=== PATIENT | female | born 1940 | race Caucasian/White ===

== ENCOUNTER 2024-04-10 15:53 | Emergency (ER) | payer MEDICARE, BC, SELFPAY ==
[2024-04-10 15:57] VITALS: BP 114/60
--- NOTE | 2024-04-10 16:34 | ED.GENMED ---
History of Present Illness
General
Chief Complaint: Breathing Problem
Time Seen by Provider: 04/10/24 16:16
Travel History
Have you had any contact with someone who has COVID-19?: No
Do you have any symptoms of coronavirus? Fever > 100 degrees, chills, cough, shortness of breath, sore throat, loss of taste or smell, muscle aches, or headache?: Yes
Symptoms:: cough
History of Present Illness
History of Present Illness:
HPI: The patient presents with right-sided pleuritic chest discomfort that was worse earlier today. Currently has improved. She had some mild vague shortness of breath. She did have some mucus production as well. She has a history of SARAHI and is
known to Dr. Caden Lopez at [facility]. She had been on several antibiotics but cannot tolerate the side effects and currently is not on any treatment for SARAHI. She states that she had a recent CAT scan at [facility] she has a history of
non-Hodgkin's lymphoma. Her symptoms concerned enough to come to the emergency department today but overall she is improved currently
EXAM:
GENERAL: Well appearing in no distress, room air sat 95 to 96%
HEENT: Moist oral mucosa
CARDIOVASCULAR: No murmurs, normal heart rate, regular rhythm, No chest wall tenderness
PULMONARY: No respiratory distress, Rales bilaterally
ABDOMEN: Soft with no peritoneal signs, no tenderness
NEUROLOGIC: Excellent strength all extremities, no coordination deficits
PSYCHIATRIC: Appropriate mental status, normal insight and judgement
EXTREMITIES: Nontender, no edema, moves all extremities equally
SKIN: No rash, no lesions
TIME OF INITIAL ENCOUNTER: 4:30 PM
NUMBER AND COMPLEXITY OF PROBLEMS ADDRESSED AT THE ENCOUNTER
� Chronic conditions affecting care: SARAHI, A-fib, CAD
� Acute Exacerbation and/or Progression of Chronic Illness: This is an acute problem
� Differential Diagnosis includes: Worsening SARAHI, pneumonia, PE, doubt ACS given the associated productive cough
AMOUNT AND/OR COMPLEXITY OF DATA TO BE REVIEWED AND ANALYZED
� I performed an independent evaluation of and my interpretation is:
EKG: Sinus 86, axis deviation, minimal ST elevation in V1 V2 but not significant changed in comparison to 03/10/2022
CT:
X-rays: Chest x-ray personally viewed I agree with radiologist interpretation that there is similar findings in comparison to 03/09/2022
Laboratory Studies: CBC unremarkable, hemoglobin slightly low at 11.8, age-adjusted D-dimer is reassuring, total bili and AST ALT and alk phos just minimally elevated, BNP not significantly elevated and troponin is unremarkable.
Other:
� Review of other/old records: The daughter gave me the results of the CT of the chest from 03/15/2024 on the patient portal that showed 'intervally increased anterior right upper lobe consolidative opacity suspicious for
pneumonia versus atelectasis, waxing waning of tree-in-bud branching nodularities and pulmonary nodules in both lungs, no change in small airway disease. She was AFB negative recently.
� Clinical information was obtained by an independent historian: I spoke to the daughter at bedside
� Prescriptions/Medications Considered but not given:
� Further testing considered but not performed:
RISK OF COMPLICATIONS AND/OR MORBIDITY OR MORTALITY OF PATIENT MANAGEMENT
� Social determinants of health affecting care: Lives at home
� Discussion with other providers: See below
� Escalation of care including admission/observation vs risk of discharge considered: I discussed case with Dr. Lopez over the phone. No clear indication for antibiotics, steroids, admission. Most of her symptoms have resolved.
Minimal LFT elevation however the patient primarily had chest pain into the back and may be some left-sided abdominal discomfort. She has no right upper quadrant tenderness on exam and did not have isolated pain to the right side of the abdomen.
Past History
Past History
ED Past Medical History: Arrthythmia
ED Past Surgical History: Cardiac, Gynecological and Orthopedic
Social History
Tobacco: Non-smoker
Personal:
Living: with family
Employment: Retired
Family History
Family History: Negative Early CAD
Phy Exam
Physical Exam
Physical Exam:
See HPI
Scores
Heart Failure Risk
Heart Failure Risk Score: Not Applicable
Course
Orders/Labs/Results
Orders:
Orders
04/10/24 16:03
ECG [Electrocardiogram (*1)] Urgent
Reason for Study: Shortness of Breath
EKG- Treatment ONCE
04/10/24 16:28
Complete Blood Count/With Diff Urgent
Comprehensive Metabolic Panel Urgent
D-Dimer Urgent
NT-proBNP Urgent
Troponin I Urgent
04/10/24 16:32
Add On- LAB Urgent
Tests Added?: ddimer
04/10/24 16:33
CR Chest - 2 Views Urgent
Comment:
Reason For Exam: R pleuritic pain; h/o SARAHI
Abnormal Lab Results
04/10/24
16:28
RBC 4.07 L 10^6/uL
(4.20-5.40)
Hgb 11.8 L g/dL
(12.0-16.0)
Hct 34.3 L %
(37.0-47.0)
MPV 11.3 H fL
(7.4-10.4)
Absolute Neuts (auto) 7.6 H 10^3/uL
(1.4-6.5)
Absolute Lymphs (auto) 0.9 L 10^3/uL
(1.2-3.4)
Absolute Monos (auto) 1.0 H 10^3/uL
(0.1-0.6)
Neutrophils % 79.3 H %
(42.2-75.2)
Lymphocytes % 9.4 L %
(20.5-51.1)
Monocytes % 10.0 H %
(1.7-9.3)
D-Dimer 0.77 H ug/mlFEU
(0.00-0.50)
Sodium 134 L mmol/L
(135-145)
Total Bilirubin 1.6 H mg/dl
(0.2-1.3)
AST 72 H U/L
(14-36)
ALT 85 H U/L
(0-35)
Alkaline Phosphatase 166 H U/L
(38-126)
04/10/24 16:28
04/10/24 16:28
Vital Signs
Initial and Last Documented VS:
Initial Vital Signs
Temp Pulse Resp BP Pulse Ox
99.1 F 78 16 114/60 96
04/10/24 15:57 04/10/24 15:57 04/10/24 15:57 04/10/24 15:57 04/10/24 15:57
Last Documented Vital Signs
Temp Pulse Resp BP Pulse Ox
99.1 F 78 16 114/60 96
04/10/24 15:57 04/10/24 15:57 04/10/24 15:57 04/10/24 15:57 04/10/24 15:57
*Critical Care Note
Total Time (30-74mins, 75-104mins- exclusive of procedures): Not Applicable
ED Attending Note
-
Portions of this chart may have been created with voice recognition software.� Occasional wrong word or��sound alike� substitutions may have occurred due to the inherent limitations of voice recognition software.
Discharge Plan
Departure
Prescriptions:
No Action
carvedilol 3.125 MG tablet
3.125 mg PO BID
calcium carbonate 600 MG tablet
600 mg PO DAILY
duloxetine 30 MG capsule,delayed release(DR/EC)
30 mg PO HS
cholecalciferol (vitamin D3) 1,000 UNITS tablet
1,000 units PO DAILY
umeclidinium-vilanterol [Anoro Ellipta] 1 EACH blister with device
1 ea IH R DAILY
atorvastatin 40 MG tablet
40 mg PO QPM Qty: 30 11RF
clopidogrel 75 MG tablet
75 mg PO DAILY Qty: 30 11RF
aspirin 81 MG tablet,chewable
81 mg PO DAILY 0RF
rivaroxaban [Xarelto] 15 MG tablet
15 mg PO QPM Qty: 30 11RF
Rx Instructions:
Reduce Xarelto to 15 mg once daily
methylprednisolone [Medrol (Jamie)] 4 MG tablets,dose pack
4 tab PO . DIRECT Qty: 1 0RF
Referrals:
Russ Frederick MD [Family Provider] -
Interventions
Interventions:
*ED COVID-19 Vaccine History Last Done: 04/10/24 15:59
Discharge Date and Time
Print Language: SWEDISH
[2024-04-10 16:40] LABS: % Basophils 0.5 % (0-2); % Eosinophils 0.5 % (0-6); % Immature Granulocytes 0.3 % (0-0.5); % Lymphocytes 9.4 % (20.5-51.1); % Neutrophils 79.3 % (42.2-75.2); Absolute Basophils 0.1 10^3/uL (0-0.2); Absolute Eosinophils 0.1 10^3/uL (0-0.7); Absolute Lymphocytes 0.9 10^3/uL (1.2-3.4); Absolute Neutrophils 7.6 10^3/uL (1.4-6.5); Hematocrit 34.3 % (37.0-47.0); Hemoglobin 11.8 g/dL (12.0-16.0); Mean Corp Hgb Conc. 34.4 g/dL (33.0-37.0); Mean Corpuscular Volume 84.3 fL (81.0-99.0); Mean Platelet Volume 11.3 fL (7.4-10.4); Nucleated Red Blood Cells % 0 %; Platelet Count 181 10^3/uL (130-400); Red Blood Cell Count 4.07 10^6/uL (4.20-5.40); Red Cell Dist. Width 13.6 % (11.5-14.5); White Blood Cell Count 9.6 10^3/uL (4.8-10.8)
[2024-04-10 16:50] LABS: D-Dimer 0.77 ug/mlFEU (0.00-0.50)
[2024-04-10 16:53] LABS: ALT (SGPT) 85 U/L (0-35); AST (SGOT) 72 U/L (14-36); Alkaline Phosphatase 166 U/L (38-126); Blood Urea Nitrogen 9 mg/dl (7-17); Calcium 9.2 mg/dl (8.4-10.2); Carbon Dioxide 27 mmol/L (22-30); Chloride 98 mmol/L (98-107); Glucose 99 mg/dl (70-99); Sodium 134 mmol/L (135-145); Total Bilirubin 1.6 mg/dl (0.2-1.3); Total Protein 7.3 g/dl (6.3-8.2); eGFR > 60.00
[2024-04-10 17:03] LABS: Troponin I < 0.012 ng/ml
[2024-04-10 17:21] LABS: NT-proBNP 625 pg/ml
[2024-04-10 18:12] VITALS: BP 97/64
== END 2024-04-10 18:33 | disposition home or self-care (01) ==
LOC: EMR 15:53
PROVIDERS: EMERGENCY PHYSICIAN Emergency Medicine; FAMILY PHYSICIAN Internal Medicine Geriatric Medicine
DX: R07.89 Other chest pain (principal)
CPT/HCPCS: 99285; 71046; 80053; 83880; 84484; 85025; 85379; 93005

== ENCOUNTER → 2024-11-09 08:15 | Outpatient (REF) | payer MEDICARE, BC, SELFPAY | LOC: RCS 08:15 | PROVIDERS: ATTENDING PHYSICIAN Internal Medicine Cardiovascular Disease; FAMILY PHYSICIAN Internal Medicine Geriatric Medicine | DX: I35.0 Nonrheumatic aortic (valve) stenosis (principal) | CPT/HCPCS: 93306 ==

== ENCOUNTER → 2024-11-21 08:58 | Outpatient (REF) | payer MEDICARE, BC, SELFPAY | LOC: WDC 08:58 | PROVIDERS: ATTENDING PHYSICIAN Internal Medicine Geriatric Medicine | DX: Z12.31 Encounter for screening mammogram for malignant neoplasm of breast (principal) | CPT/HCPCS: 77063; 77067 ==

== ENCOUNTER → 2025-01-09 07:52 | Outpatient (REF) | payer MEDICARE, BC, SELFPAY ==
[2025-01-09 09:16] LABS: % Basophils 1.4 % (0-2); % Eosinophils 3.8 % (0-6); % Immature Granulocytes 0.2 % (0-0.5); % Lymphocytes 28.9 % (20.5-51.1); % Monocytes 10.8 % (1.7-9.3); % Neutrophils 54.9 % (42.2-75.2); Absolute Basophils 0.1 10^3/uL (0-0.2); Absolute Eosinophils 0.2 10^3/uL (0-0.7); Absolute Lymphocytes 1.2 10^3/uL (1.2-3.4); Absolute Monocytes 0.5 10^3/uL (0.1-0.6); Absolute Neutrophils 2.3 10^3/uL (1.4-6.5); Hematocrit 39.4 % (37.0-47.0); Hemoglobin 12.8 g/dL (12.0-16.0); Mean Corp Hgb Conc. 32.5 g/dL (33.0-37.0); Mean Corpuscular Hgb 28.9 pg (27.0-31.0); Mean Corpuscular Volume 88.9 fL (81.0-99.0); Mean Platelet Volume 11.4 fL (7.4-10.4); Nucleated Red Blood Cells % 0 %; Platelet Count 218 10^3/uL (130-400); Red Blood Cell Count 4.43 10^6/uL (4.20-5.40); Red Cell Dist. Width 14.9 % (11.5-14.5); White Blood Cell Count 4.3 10^3/uL (4.8-10.8)
[2025-01-09 10:03] LABS: ALT (SGPT) 29 U/L (0-35); AST (SGOT) 25 U/L (14-36); Albumin 4.6 g/dl (3.5-5.0); Alkaline Phosphatase 78 U/L (38-126); Blood Urea Nitrogen 20 mg/dl (7-17); Calcium 9.7 mg/dl (8.4-10.2); Carbon Dioxide 29 mmol/L (22-30); Chloride 102 mmol/L (98-107); Glucose 99 mg/dl (70-99); HDL Cholesterol 79 mg/dl; LDL Cholesterol, Calculated 63 mg/dl; Potassium 4.8 mmol/L (3.5-5.1); Sodium 139 mmol/L (135-145); Total Bilirubin 0.9 mg/dl (0.2-1.3); Total Cholesterol 156 mg/dl (50-199); Total Protein 7.5 g/dl (6.3-8.2); Triglyceride 73 mg/dl (10-149); Very Low Density Lipoprotein 14 mg/dl (0-30); eGFR > 60.00
[2025-01-09 10:09] LABS: TSH Reflex To Free T4 5.48 uIU/ml (0.47-4.68)
[2025-01-09 10:38] LABS: Free T4 0.95 ng/dl (0.78-2.19)
== END ==
LOC: REG 07:52
PROVIDERS: ATTENDING PHYSICIAN Internal Medicine Cardiovascular Disease; FAMILY PHYSICIAN Internal Medicine Geriatric Medicine
DX: I35.0 Nonrheumatic aortic (valve) stenosis (principal); I25.10 Atherosclerotic heart disease of native coronary artery without angina pectoris; I48.0 Paroxysmal atrial fibrillation; R00.2 Palpitations
CPT/HCPCS: 36415; 80053; 80061; 84439; 84443; 85025

== ENCOUNTER 2025-03-12 03:07 | Inpatient (IN) | payer MEDICARE, BC, SELFPAY ==
[2025-03-11 16:59] VITALS: BP 109/72
[2025-03-11 17:36] LABS: ALT (SGPT) 107 U/L (0-35); AST (SGOT) 52 U/L (14-36); Albumin 3.7 g/dl (3.5-5.0); Alkaline Phosphatase 433 U/L (38-126); Blood Urea Nitrogen 11 mg/dl (7-17); Calcium 9.3 mg/dl (8.4-10.2); Carbon Dioxide 28 mmol/L (22-30); Chloride 103 mmol/L (98-107); Glucose 112 mg/dl (70-99); Potassium 3.9 mmol/L (3.5-5.1); Sodium 137 mmol/L (135-145); Total Bilirubin 1.3 mg/dl (0.2-1.3); Total Protein 6.9 g/dl (6.3-8.2); eGFR > 60.00
[2025-03-11 17:39] LABS: NT-proBNP 2780 pg/ml; Troponin I 0.015 ng/ml
[2025-03-11 17:41] LABS: % Basophils 0.7 % (0-2); % Eosinophils 0.4 % (0-6); % Immature Granulocytes 0.7 % (0-0.5); % Lymphocytes 9.6 % (20.5-51.1); % Monocytes 10.7 % (1.7-9.3); % Neutrophils 77.9 % (42.2-75.2); Absolute Basophils 0.1 10^3/uL (0-0.2); Absolute Immature Granulocytes 0.1 10^3/uL (0-0.05); Absolute Monocytes 1.1 10^3/uL (0.1-0.6); Absolute Neutrophils 7.9 10^3/uL (1.4-6.5); Hematocrit 33.4 % (37.0-47.0); Hemoglobin 11.2 g/dL (12.0-16.0); Mean Corp Hgb Conc. 33.5 g/dL (33.0-37.0); Mean Corpuscular Hgb 28.1 pg (27.0-31.0); Mean Corpuscular Volume 83.7 fL (81.0-99.0); Mean Platelet Volume 11.5 fL (7.4-10.4); Nucleated Red Blood Cells % 0 %; Platelet Count 259 10^3/uL (130-400); Red Blood Cell Count 3.99 10^6/uL (4.20-5.40); White Blood Cell Count 10.2 10^3/uL (4.8-10.8)
[2025-03-11 22:06] VITALS: BP 124/80
[2025-03-11 22:24] VITALS: BP 105/55
[2025-03-11 22:34] LABS: Troponin I 0.014 ng/ml
[2025-03-11 23:21] VITALS: BMI 24.1
[2025-03-11] MEDS: DUONEB 3 ML INH (23:26)
[2025-03-11 23:39] VITALS: BP 132/97
[2025-03-12] VITALS (62 sets, daily range): BP systolic 74–136; BP diastolic 44–76; BMI 23.4
--- NOTE | 2025-03-12 01:15 | ED.GENMED ---
History of Present Illness
<SHELLEY Crockett Jr. Last Filed: 03/12/25 02:12>
General
Chief Complaint: Cardiac Symptoms
Source: patient, spouse, family and physician
Exam Limitations: none
Time Seen by Provider: 03/11/25 23:07
Nursing documentation reviewed up to this point in time: agreed with
History of Present Illness
History of Present Illness:
84-year-old female with past ministry of A-fib currently on Xarelto, CAD status post cardiac stent currently on Plavix, non-Hodgkin's lymphoma, previous MAC diagnosis presenting to the emergency department today with concerns of productive cough
with green sputum fever shortness of breath worsening over the past few days. Denies specific chest pain. Denies nausea vomiting, no history of COPD or asthma. Has had some seasonal allergic type symptoms over the past week or so.
Past History
<SHELLEY Crockett Jr. Last Filed: 03/12/25 02:12>
Past History
ED Past Medical History: Arrthythmia
ED Past Surgical History: Cardiac, Gynecological and Orthopedic
Social History
Tobacco: Non-smoker
Personal:
Living: with family
Employment: Retired
Family History
Family History: Negative Early CAD
Review of Systems
<SHELLEY Crockett Jr. Last Filed: 03/12/25 02:12>
Review of Systems
Allergies reviewed?: Yes
All Other Systems: ROS reviewed and negative except as documented in HPI and ROS
Phy Exam
<SHELLEY Crockett Jr. Last Filed: 03/12/25 02:12>
Physical Exam
Physical Exam:
GENERAL: Alert , in no apparent distress
EYE: pupils equal and reactive
NECK: Supple, no significant adenopathy.
ENT: o/p clr, mmm.
CARDIAC: Regular rate and rhythm .
LUNGS: Diffuse inspiratory and expiratory wheezing.
ABDOMEN: Soft, without focal tenderness, no r/g, no cvat
NEUROLOGICAL: Alert and oriented, no focal neuro deficits
SKIN: Warm and dry, skin intact.
MUSCULOSKELETAL: No edema, well perfused.
PSYCH: Normal and appropriate interaction.
Course
<Luis Ansari Jr., SHELLEY - Last Filed: 03/12/25 02:12>
Orders/Labs/Results
Orders:
Orders
03/11/25 16:49
ECG [Electrocardiogram (*1)] Urgent
Reason for Study: Chest Pain
EKG- Treatment ONCE
03/11/25 17:11
Complete Blood Count/With Diff Urgent
Comprehensive Metabolic Panel Urgent
Pro-BNP [NT-proBNP] Urgent
Troponin I Urgent
03/11/25 21:34
ECG [Electrocardiogram (*1)] Urgent
Reason for Study: Chest Pain
03/11/25 21:35
EKG- Treatment ONCE
03/11/25 22:02
Troponin I Urgent
03/11/25 23:24
Ipratropium/Albuterol Sulfate [Duoneb] 3 ml INH R NOW ONE
03/11/25 23:25
Ipratropium/Albuterol Sulfate [Duoneb] 3 ml .ROUTE .STK-MED ONE
03/12/25 00:02
CT Chest With Iv Contrast Urgent
Reason For Exam: Cough fever hx of SARAHI
03/12/25 00:57
Acetaminophen [Tylenol] 1,000 mg PO NOW STA
03/12/25 01:10
ECG [Electrocardiogram (*1)] Urgent
Reason for Study: Bradycardia / Tachycardia
Other Reason for Exam: tachycardia
Cardiology Consult: Norma Carlson
EKG- Treatment ONCE
03/12/25 01:59
Azithromycin 500 mg/250 ml [Zithromax Infusion] 500 mg in 250 ml IV NOW
CefTRIAXone [Rocephin] 2,000 mg IV NOW STA
03/12/25 02:00
Dexamethasone Sod Phosphate [Decadron] 10 mg IV Q6H
03/12/25 02:19
ECG [Electrocardiogram (*1)] Urgent
Reason for Study: Palpitations
Cardiology Consult: Norma Carlson
EKG- Treatment ONCE
03/12/25 02:31
Carvedilol [Coreg] 3.125 mg PO NOW STA
03/12/25 02:35
Carvedilol [Coreg] 3.125 mg .ROUTE .STK-MED ONE
03/12/25 02:57
Admit/Transfer Patient As Directed
Co-Sign Provider:
Level of Care: Inpatient admission
Assign to:: Medical/Surgical
Physician / Group: Danny
Diagnosis: Pneumonia
Reason for Hospitalization: Pneumonia
Expected length of stay greater than two midnights?: Yes
ELOS- Estimated Length of Stay in days: 2
I certify the patient meets the requirements for IP care: Yes
03/12/25 02:58
Code Status As Directed
Resuscitation Status: Full Code
PRN Pain Medication Management As Directed
May give lesser potent ordered pain med per pt: Yes
preference::
Protocol:: Medication orders for pain may be administered in a
manner that supports deferring to patient preference
when the pt is:
- Requesting an ordered lesser potent pain medication.
Least to most potent pain medications are defined
as: acetaminophen < NSAID < tramadol < opioids
(morphine, oxycodone, hydromorphone).
- Requesting a lesser dose of the same medication IF
ORDERED.
- Requesting a less intrusive route of administration
if both routes are prescribed by the provider (PO <
IV).
03/12/25 02:59
Digoxin [Lanoxin] 500 mcg IV NOW STA
03/12/25 03:00
Flush (0.9% Sodium Chloride) [Flush (Nss)] See Dose Instructions IV PER PROTOCOL
Abnormal Lab Results
03/11/25
17:11
RBC 3.99 L 10^6/uL
(4.20-5.40)
Hgb 11.2 L g/dL
(12.0-16.0)
Hct 33.4 L %
(37.0-47.0)
MPV 11.5 H fL
(7.4-10.4)
Abs Immat Gran (auto) 0.1 H 10^3/uL
(0-0.05)
Absolute Neuts (auto) 7.9 H 10^3/uL
(1.4-6.5)
Absolute Lymphs (auto) 1.0 L 10^3/uL
(1.2-3.4)
Absolute Monos (auto) 1.1 H 10^3/uL
(0.1-0.6)
Immature Gran % 0.7 H %
(0-0.5)
Neutrophils % 77.9 H %
(42.2-75.2)
Lymphocytes % 9.6 L %
(20.5-51.1)
Monocytes % 10.7 H %
(1.7-9.3)
Glucose 112 H mg/dl
(70-99)
AST 52 H U/L
(14-36)
ALT 107 H U/L
(0-35)
Alkaline Phosphatase 433 H U/L
(38-126)
03/11/25 17:11
03/11/25 17:11
Vital Signs
Initial and Last Documented VS:
Initial Vital Signs
Temp Pulse Resp BP Pulse Ox
100.5 F H 78 18 109/72 95
03/11/25 16:59 03/11/25 16:59 03/11/25 16:59 03/11/25 16:59 03/11/25 16:59
Last Documented Vital Signs
Temp Pulse Resp BP Pulse Ox
101.4 F H 108 28 102/60 98
03/12/25 00:49 03/12/25 02:39 03/12/25 01:20 03/12/25 02:39 03/12/25 01:20
Joannalt;Rodrick Ewing, - Last Filed: 03/12/25 03:06>
Orders/Labs/Results
Orders:
Orders
03/11/25 16:49
ECG [Electrocardiogram (*1)] Urgent
Reason for Study: Chest Pain
EKG- Treatment ONCE
03/11/25 17:11
Complete Blood Count/With Diff Urgent
Comprehensive Metabolic Panel Urgent
Pro-BNP [NT-proBNP] Urgent
Troponin I Urgent
03/11/25 21:34
ECG [Electrocardiogram (*1)] Urgent
Reason for Study: Chest Pain
03/11/25 21:35
EKG- Treatment ONCE
03/11/25 22:02
Troponin I Urgent
03/11/25 23:24
Ipratropium/Albuterol Sulfate [Duoneb] 3 ml INH R NOW ONE
03/11/25 23:25
Ipratropium/Albuterol Sulfate [Duoneb] 3 ml .ROUTE .STK-MED ONE
03/12/25 00:02
CT Chest With Iv Contrast Urgent
Reason For Exam: Cough fever hx of SARAHI
03/12/25 00:57
Acetaminophen [Tylenol] 1,000 mg PO NOW STA
03/12/25 01:10
ECG [Electrocardiogram (*1)] Urgent
Reason for Study: Bradycardia / Tachycardia
Other Reason for Exam: tachycardia
Cardiology Consult: Norma Carlson
EKG- Treatment ONCE
03/12/25 01:59
Azithromycin 500 mg/250 ml [Zithromax Infusion] 500 mg in 250 ml IV NOW
CefTRIAXone [Rocephin] 2,000 mg IV NOW STA
03/12/25 02:00
Dexamethasone Sod Phosphate [Decadron] 10 mg IV Q6H
03/12/25 02:19
ECG [Electrocardiogram (*1)] Urgent
Reason for Study: Palpitations
Cardiology Consult: Norma Carlson
EKG- Treatment ONCE
03/12/25 02:31
Carvedilol [Coreg] 3.125 mg PO NOW STA
03/12/25 02:35
Carvedilol [Coreg] 3.125 mg .ROUTE .STK-MED ONE
03/12/25 02:57
Admit/Transfer Patient As Directed
Co-Sign Provider:
Level of Care: Inpatient admission
Assign to:: Medical/Surgical
Physician / Group: Danny
Diagnosis: Pneumonia
Reason for Hospitalization: Pneumonia
Expected length of stay greater than two midnights?: Yes
ELOS- Estimated Length of Stay in days: 2
I certify the patient meets the requirements for IP care: Yes
03/12/25 02:58
Code Status As Directed
Resuscitation Status: Full Code
PRN Pain Medication Management As Directed
May give lesser potent ordered pain med per pt: Yes
preference::
Protocol:: Medication orders for pain may be administered in a
manner that supports deferring to patient preference
when the pt is:
- Requesting an ordered lesser potent pain medication.
Least to most potent pain medications are defined
as: acetaminophen < NSAID < tramadol < opioids
(morphine, oxycodone, hydromorphone).
- Requesting a lesser dose of the same medication IF
ORDERED.
- Requesting a less intrusive route of administration
if both routes are prescribed by the provider (PO <
IV).
03/12/25 02:59
Digoxin [Lanoxin] 500 mcg IV NOW STA
03/12/25 03:00
Flush (0.9% Sodium Chloride) [Flush (Nss)] See Dose Instructions IV PER PROTOCOL
Abnormal Lab Results
03/11/25
17:11
RBC 3.99 L 10^6/uL
(4.20-5.40)
Hgb 11.2 L g/dL
(12.0-16.0)
Hct 33.4 L %
(37.0-47.0)
MPV 11.5 H fL
(7.4-10.4)
Abs Immat Gran (auto) 0.1 H 10^3/uL
(0-0.05)
Absolute Neuts (auto) 7.9 H 10^3/uL
(1.4-6.5)
Absolute Lymphs (auto) 1.0 L 10^3/uL
(1.2-3.4)
Absolute Monos (auto) 1.1 H 10^3/uL
(0.1-0.6)
Immature Gran % 0.7 H %
(0-0.5)
Neutrophils % 77.9 H %
(42.2-75.2)
Lymphocytes % 9.6 L %
(20.5-51.1)
Monocytes % 10.7 H %
(1.7-9.3)
Glucose 112 H mg/dl
(70-99)
AST 52 H U/L
(14-36)
ALT 107 H U/L
(0-35)
Alkaline Phosphatase 433 H U/L
(38-126)
03/11/25 17:11
03/11/25 17:11
Vital Signs
Initial and Last Documented VS:
Initial Vital Signs
Temp Pulse Resp BP Pulse Ox
100.5 F H 78 18 109/72 95
03/11/25 16:59 03/11/25 16:59 03/11/25 16:59 03/11/25 16:59 03/11/25 16:59
Last Documented Vital Signs
Temp Pulse Resp BP Pulse Ox
101.4 F H 108 28 102/60 98
03/12/25 00:49 03/12/25 02:39 03/12/25 01:20 03/12/25 02:39 03/12/25 01:20
<Luis Ansari Jr., PA-C - Last Filed: 03/12/25 02:12>
MDM/Problems Addressed
MDM/Problems Addressed:
84-year-old female presenting to the emergency department today with concerns of productive cough fever shortness of breath worsening since yesterday. This was preceded by what she believes was seasonal allergies over the past week or so. On
arrival she had a low-grade temperature of 100.5 pulse ox in the mid 90s patient was coughing and did have diffuse wheeze. She was started on DuoNeb. Also given steroids. Additionally CT scan was obtained that showed scattered infiltrates
potentially pneumonia started on antibiotics will be admitted for further monitoring. Pulse ox of about 90 at rest. Had slight improvement after DuoNeb.
<Luis Ansari Jr., PA-C - Last Filed: 03/12/25 02:12>
*Critical Care Note
Total Time (30-74mins, 75-104mins- exclusive of procedures): Not Applicable
ED Attending Note
<Luis Ansari Jr., PA-C - Last Filed: 03/12/25 02:12>
-
Portions of this chart may have been created with voice recognition software.� Occasional wrong word or��sound alike� substitutions may have occurred due to the inherent limitations of voice recognition software.
<Rodrick Ewing, DO - Last Filed: 03/12/25 03:06>
ED Attending Note
Patient seen and examined by attending physician: Yes
I performed the substantive portion of visit, reviewed & personally made and approve the management plan that is documented in note by myself or JAELYN.: Yes
ED Attending Note:
I agree with Ed's note.
Patient presents with fever, cough, shortness of breath over the past couple days.
General: Awake, Alert, Oriented X3. No acute distress.
Vitals: Tachycardic
Head: Atraumatic
Eyes: Pupils equal, EOMI
Throat: Airway intact, no exudates
Neck: Trachea midline
Lungs: Rhonchi bilaterally
Heart: Regular rate, no murmurs
Abd: Soft, Nontender, No pulsatile mass
Neuro: Nonfocal
Skin: Warm, dry, no rash
Extremities: pulses equal b/l, no edema
Patient presents with fever, chills, cough. Patient referred to the emergency room with Dr. Carlson. She informed us that the patient has chronic scarring on chest x-ray making them difficult to interpret. Therefore a CT of the chest was
obtained. This shows multifocal pneumonia. IV antibiotics ordered. Patient developed a tachycardic rhythm which seems to be consistent with an atrial tachycardia perhaps a flutter which is coming and going. With the tachycardia her blood
pressure has become a bit soft. IV fluid bolus ordered. At discussed the situation with Dr. Carlson who is on-call for cardiology and knows the patient well. She recommended a bolus of digoxin 0.5 mg.
Discharge Plan
Departure
Patient Disposition: Admit
Date of Disposition: 03/12/25
Time of Disposition: 02:12
Admit to: Med/Surg
Admit to doctor: Danny
Presentation/result/management discussed w/ accepting MD/DO: Hospitalist
Patient with high blood pressure during this ER visit?: No
Condition: Good
Covid-19: Not Applicable
Discharge Problem:
Multifocal pneumonia
Prescriptions:
No Action
carvedilol 3.125 MG tablet
3.125 mg PO BID
duloxetine 30 MG capsule,delayed release(DR/EC)
30 mg PO HS
umeclidinium-vilanterol [Anoro Ellipta] 1 EACH blister with device
1 ea IH R DAILY
atorvastatin 40 MG tablet
40 mg PO QPM Qty: 30 11RF
clopidogrel 75 MG tablet
75 mg PO DAILY Qty: 30 11RF
Xarelto 20 mg Tablet
20 mg PO DAILY
Referrals:
Russ Freedrick MD [Family Provider] -
Interventions
Interventions:
*Risk Screen - Suicide Last Done: 03/11/25 16:59
*General Assessment Last Done: 03/11/25 16:59
*ED- Fall Risk Assessment Last Done: 03/11/25 23:38
*ED COVID-19 Vaccine History Last Done: 03/11/25 23:38
ED- Pulmonary Assessment Last Done: 03/11/25 23:38
ED- Cardiac Assessment Last Done: 03/11/25 23:38
Discharge Date and Time
Print Language: SWEDISH
[2025-03-12] MEDS: TYLENOL 1000 MG PO (01:22)
[2025-03-12] MEDS: ZITHROMAX INFUSION 250 IV (02:11)
[2025-03-12] MEDS: DECADRON 10 MG IV (02:12)
[2025-03-12] MEDS: ROCEPHIN 2000 MG IV (02:12)
[2025-03-12] MEDS: COREG 3.125 MG PO (02:39)
--- NOTE | 2025-03-12 02:51 | HPS.HSE ---
Family Physician
-
Family Physician: Russ Frederick
Chief Complaint
-
Shortness of breath, productive cough and fever
History of Present Illness
This is an 84-year-old female with past medical history significant for CAD status post PCI, atrial fibrillation on anticoagulation, history of SARAHI without completing full course of treatment, who presents to the emergency department with cough
fevers and shortness of breath.
She reports cough productive with green sputum, fever shortness of breath worsening over the past few days. Denies specific chest pain. Denies nausea vomiting, no history of COPD or asthma. Recent URI/seasonal allergy symptoms. No known sick
contacts and no recent travels.
In the emergency department the patient had a temp of one 1.4, blood pressure was 100/60 with a pulse of 108 and she was satting 98% on room air.
CBC shows a white count of 10, hemoglobin and platelets were normal. Electrolytes BUN/creatinine were normal. Troponin was 0.014 and BNP was 2700. ECG shows a sinus rhythm at a rate of 94.
CT chest shows multiple centrilobular nodules and groundglass opacity throughout all lungs, moderate right pleural effusion, multifocal areas of consolidation likely represent infection.
While in the emergency department patient developed supraventricular tachycardia after a dose of Decadron and albuterol for wheezing. Patient also had a transient drop in her blood pressure and had to be given a bolus of normal saline. Appears to
be multifocal atrial tachycardia. This was sent to cardiology with recommended initiating digoxin.
Medical History
Past Medical History
Past Medical History: Reports Arrhythmia (Proximal atrial fibrillation), CAD (Has CAD status post stenting), Cancer (History of lymphoma status post R-CHOP 2019), COPD and HTN
Additional Past Medical History:
Diagnosis of MAC previously
Past Surgical History: Reports Other
Social History
Tobacco: Non-smoker
Alcohol: None
Family History
Family History: Not pertinent
Allergies / Home Medications
Allergies reflects when Allergies were last updated in [facility].
Home Medications with original date entered in [facility]
Allergy/Medication List:
Allergies
Allergy/AdvReac Type Severity Reaction Status Date / Time
grass pollen Allergy nasal Verified 03/11/25 16:54
symptoms
Home Medications
carvedilol 3.125 mg tablet 3.125 mg PO BID Blood pressure 03/09/22
duloxetine 30 mg capsule,delayed release 30 mg PO HS Mental Health/Anxiety 03/09/22
umeclidinium 62.5 mcg-vilanterol 25 mcg/actuation powdr for inhalation (Anoro Ellipta) 1 ea IH R DAILY Lung/breathing issues 03/09/22
atorvastatin 40 mg tablet 40 mg PO QPM High cholesterol #30 tabs 03/10/22
clopidogrel 75 mg tablet 75 mg PO DAILY Heart disease/condition #30 tabs 03/10/22
rivaroxaban 20 mg tablet (Xarelto) 20 mg PO DAILY 03/12/25
Review of Systems
-
History Source: Patient
Constitutional: Reports Fever
Respiratory: Reports Cough and Trouble Breathing
Cardiac: Reports No Symptoms
Abdomen/GI: Reports No Symptoms
: Reports No Symptoms
Musculoskeletal: Reports No Symptoms
Skin: Reports No Symptoms
Neurological: Reports No Symptoms
Endocrine: Reports No Symptoms
Hematologic/Lymphatic: Reports No Symptoms
Psych: Reports No Symptoms
Physical Exam
Vital Signs
Vital Signs
Temp Pulse Resp BP Pulse Ox
101.4 F H 108 28 102/60 98
03/12/25 00:49 03/12/25 02:39 03/12/25 01:20 03/12/25 02:39 03/12/25 01:20
Physical Exam
General: Well Developed, Well Nourished and Conversant; No Respiratory Distress
HEENT: NormoCephalic, Anicteric, Moist mucous membranes, Atraumatic and PERRLA
Respiratory: Clear
Cardiac: S1/S2, Irregular Rhythm and Tachycardia
Breast: Deferred by me
GI: Soft, Non Tender, Non Distended and Normal Bowel Sounds
Rectal: Deferred by Provider
Genito-urinary: Deferred by me
Musculoskeletal: No Clubbing, No Cyanosis and No Edema
Skin: Warm
Neuro: AO x 3 and Nonfocal/grossly intact
Hematologic/Lymphatic: No Lymphadenopathy
Psych: Calm
Laboratory Results
-
03/11/25 17:11
03/11/25 17:11
Laboratory Results
Total Bilirubin 1.3 mg/dl (0.2-1.3) 03/11/25 17:11
AST 52 U/L (14-36) H 03/11/25 17:11
ALT 107 U/L (0-35) H 03/11/25 17:11
Alkaline Phosphatase 433 U/L (38-126) H 03/11/25 17:11
Troponin I 0.014 ng/ml 03/11/25 22:02
Data Reviewed
-
CT Scan: Report Reviewed by me
Medical Tests (Nuc Med, Echo, EKG etc): Image Personally Visualized and interpreted
Lab Data: Labs Reviewed by me
Old Records: Reviewed
Impression/Plan
-
IMPRESSION:
84 y.o female with h/o MAC, CAD s/p PCI, AFIB on rivaroxaban presenting with cough, fevers, sob. Febrile here and found to have multifocal pneumonia on CT chest.
PLAN:
1. Pneumonia
- admit to IMU med/surg
- check covid/flu
- continue with doxy (qt prolonged on repeat ECG) and ceftriaxone
- legionella and strep pneumo urinary ag
- sputum culture
- blood culture
- supportive measures
2. Supraventricular tachycardia - uncontrolled AFIB, Atrial tachycardia and PVCs after nebs and steroids and transient drop in BP. Unlikely to tolerate high rate agents. Elevated BNP compared to prior. No JVD. No peripheral edema. Trop is
negative.
- ED d/w cardiology, load digoxin
- will continue coreg
- continue rivaroxaban
- echo in am
- correct infectious process. NO indication for steroids.
- cardiology consult
2. CAD - no cp, neg trop
- continue plavix and statin and beta blockade
3. AFIB - rate controlled
- continue coreg
- continue rivaroxaban
DVT PPX - on rivaroxaban
Code status - full code
[2025-03-12] MEDS: LANOXIN 500 MCG IV (03:02)
[2025-03-12 06:10] LABS: Hematocrit 31.8 % (37.0-47.0); Hemoglobin 11.1 g/dL (12.0-16.0); Mean Corp Hgb Conc. 34.9 g/dL (33.0-37.0); Mean Corpuscular Hgb 29.1 pg (27.0-31.0); Mean Corpuscular Volume 83.2 fL (81.0-99.0); Platelet Count 253 10^3/uL (130-400); Red Blood Cell Count 3.82 10^6/uL (4.20-5.40); Red Cell Dist. Width 13.1 % (11.5-14.5); White Blood Cell Count 10.9 10^3/uL (4.8-10.8)
[2025-03-12 06:22] LABS: COVID-19 Antigen Negative (Negative)
[2025-03-12 06:30] LABS: Blood Urea Nitrogen 12 mg/dl (7-17); Calcium 8.6 mg/dl (8.4-10.2); Carbon Dioxide 23 mmol/L (22-30); Chloride 111 mmol/L (98-107); Estimated Creatinine Clearance 55 ml/min; Glucose 154 mg/dl (70-99); Potassium 4.1 mmol/L (3.5-5.1); Sodium 140 mmol/L (135-145); eGFR > 60.00
--- NOTE | 2025-03-12 07:48 | CON.CAR ---
Addendum entered and electronically signed by Tod Steiner MD 03/12/25 11:13:
I saw and examined the patient.
The Hassock Maker's note was reviewed and I agree with the note.
Comment:
GEN: No distress, awake, Ox3
HEENT: supple, anicteric, mmm
LUNGS: scatt rhonchi
CV: Reg, S1/S2, 1/6 syst LSB, no gallop
ABD: soft, BS+, NT/ND
EXT: No edema
NEURO: Gross non-focal
SKIN: No rash
Plan:
84-year-old female with past medical history of moderate aortic stenosis, paroxysmal atrial fibrillation/atrial flutter status post ablation 2012, coronary artery disease status post LAD PCI 2021, SARAHI and lymphoma who presents with cough, fever, and
shortness of breath. Chest x-ray suggest possible pneumonia. She then was having incidents of SVT/atrial tachycardia, and possible a flutter with one-to-one conduction. She was given digoxin x 1 and currently remains in sinus rhythm. She was
also found to have abnormal LFTs.
Continue antibiotics and treatment for pneumonia. Continue doxycycline and ceftriaxone.
She has less SVT and atrial tachycardia at this point. Will start by increasing carvedilol to 6.25 mg p.o. twice daily and follow her rhythm. If she has further episodes of atrial arrhythmias we could consider amiodarone if her liver function
testing improves.
Continue medical therapy for coronary artery disease. Continue the carvedilol, Plavix, Xarelto. Would hold atorvastatin with abnormal LFTs.
We will check repeat echocardiogram. She does have a history of moderate aortic stenosis with progressive symptoms.
Original Note:
Consultation
Consultation Request
Date/Time Consultation Requested: 03/12/25 at 0454
Date/Time Consultation Performed: 03/12/25 at 0732
Requesting Provider: Dr. Sifuentes
Performing Provider: Dr. Steiner
Reason for Consultation: Atach
Medical History
-
History of Present Illness:
Patient was sent from the cardiology office to the ER yesterday with SOB, cough and fever and is now admitted with PNA and cardiology is consulted for paroxysmal Atach. Patient has a h/o paroxysmal typical atrial flutter and had ablation in 2012.
Patient later had paroxysmal Afib and was on Flecainide, but had elevated LFTs and it was stopped. Patient was een by [facility] for a 2nd opinion and opted to manage conservatively with meds and OAC. Patient wore a monitor in 2021 and had Atach up to 39
beats. Patient also diagnosed with lymphoma and initially had Adriamycin and Rituxan and then completed R-CHOP in 02/2020 managed at [facility]. Patient also has SARAHI and saw [facility] 01/17/[address] was stable so she is not chronically on meds due to lack
of symptoms as well and of note previously treated in 2021 and had trouble tolerating therapy. In the office yesterday patient c/o fever and cough and was referred to the ER and was found to have PNA. Fever overnight up to 101.4 degrees Fahrenheit
and patient started on azithromycin and Rocephin. Patient also felt palpitations Tuesday night that felt like previous Afib and then in the ER last night after a breathing treatment she had MAT with resultant hypotension and was given digoxin 500 mcg
IV x1 and is now in SR.
PMH:
Paroxysmal typical atrial flutter s/p ablation 2012
Paroxysmal Afib
previously intolerant to Flecainide
Chronic Xarelto OAC
CAD s/p 3.5 mm Xience prox LAD 03/10/22
SARAHI
Lymphoma
previously received received Adriamycin and Rituxan
completed R-CHOP chemo 02/2020
Past Medical History
Past Medical History: Other (in HPI)
Past Surgical History: Cardiac (atrial flutter ablation 2012) and Orthopedic
Social History
Tobacco: Non-Smoker
Alcohol: Daily (1-2 glasses of wine a day)
Drug: None
Personal:
Living: With Family
Family History
Family History: CAD and Cancer
Allergies / Home Medications
Allergy/AdvReac Type Severity Reaction Status Date / Time
grass pollen Allergy nasal Verified 03/11/25 16:54
symptoms
�Medication �Instructions �Recorded �Confirmed �Type
carvedilol 3.125 mg tablet 3.125 mg PO BID Blood pressure 03/09/22 03/12/25 History
duloxetine 30 mg capsule,delayed 30 mg PO HS Mental Health/Anxiety 03/09/22 03/12/25 History
release
umeclidinium 62.5 mcg-vilanterol 1 ea IH R DAILY Lung/breathing 03/09/22 03/12/25 History
25 mcg/actuation powdr for issues
inhalation (Anoro Ellipta)
atorvastatin 40 mg tablet 40 mg PO QPM High cholesterol #30 03/10/22 03/12/25 Rx
tabs
clopidogrel 75 mg tablet 75 mg PO DAILY Heart 03/10/22 03/12/25 Rx
disease/condition #30 tabs
rivaroxaban 20 mg tablet (Xarelto) 20 mg PO DAILY 03/12/25 03/12/25 History
Review of Systems
-
History Source: Patient
All other systems: Negative unless noted
Physical Exam
Vital Signs
Temp Pulse Resp BP Pulse Ox
98.9 F 76 16 105/63 93
03/12/25 05:00 03/12/25 06:05 03/12/25 06:05 03/12/25 06:05 03/12/25 06:05
GEN: Awakens easily, but then falls back to sleep. NAD. AAOx3
HEENT: EOMI, MMM
LUNGS: RA. CTA B/L, no wheeze
CV: SR on tele. Reg, S1/S2, 2/6 DENNIS
ABD: soft, BS+, NT, ND
EXT: No edema B/L
NEURO: Gross non-focal
SKIN: Warm, dry and pink. No rash
Lab Results
03/12/25 05:53
03/12/25 05:53
Troponin I 0.014 ng/ml 03/11/25 22:02
Vrk-V-Bkghpcgnlre Pept 2780 pg/ml 03/11/25 17:11
Impression / Plan
-
PCP: Dr. Frederick
Cardiology: Dr. Norma Carlson
Impression:
Admitted with CAP and Atach 03/11/25
CAP
Paroxysmal Atach with RVR
Paroxysmal typical atrial flutter s/p ablation 2012
Paroxysmal Afib
previously intolerant to Flecainide
Chronic Xarelto OAC
CAD s/p 3.5 mm Xience prox LAD 03/10/22
SARAHI
Lymphoma
previously received received Adriamycin and Rituxan
completed R-CHOP chemo 02/2020
Elevated LFTs
Echo 01/14/22: EF 55-60%, LV global endocardial peak strain measures -15%, mild mR, mild to mod peak/mean 34/21 mmHg an d RISHI 1.1 cm sq
Echo 11/09/23: EF 59%, mild conc LVH, mild MR, mild aortic regurgitation, mod peak/mean 34/22 mmHg RISHI 1.0 cm sq, mod TR with PAP 29 mmHg
Echo 11/09/24: EF 55-60%, normal wall motion, normal RV size and function, moderate to severe peak/mean 50/23 mmHg and RISHI 0.8 cm sq, mod TR with PAP 41 mmHg,
Plan:
-Patient was sent from the cardiology office to the ER yesterday with SOB, cough and fever and is now admitted with PNA and cardiology is consulted for paroxysmal Atach. Patient has a h/o paroxysmal typical atrial flutter and had ablation in 2012.
Patient later had paroxysmal Afib and was on Flecainide, but had elevated LFTs and it was stopped. Patient was een by [facility] for a 2nd opinion and opted to manage conservatively with meds and OAC. Patient wore a monitor in 2021 and had Atach up to 39
beats. Patient also diagnosed with lymphoma and initially had Adriamycin and Rituxan and then completed R-CHOP in 02/2020 managed at [facility]. Patient also has SARAHI and saw [facility] 01/17/[address] was stable so she is not chronically on meds due to lack
of symptoms as well and of note previously treated in 2021 and had trouble tolerating therapy. In the office yesterday patient c/o fever and cough and was referred to the ER and was found to have PNA. Fever overnight up to 101.4 degrees Fahrenheit
and patient started on azithromycin and Rocephin. Patient also felt palpitations Tuesday night that felt like previous Afib and then in the ER last night after a breathing treatment she had MAT with resultant hypotension and was given digoxin 500 mcg
IV x1 and is now in SR.
-ECGs reviewed by me. Initial ECG in the ER was SR and ECG this morning at 0229 was MAT with HR 161. Tele reviewed by me this morning and patient in SR throughout HPI.
-Patient with MAT overnight that improved with Digoxin 500 mcg IV x1. Will increase Coreg to 6.25 mg BID starting now, orders placed by me.
-Patient was previously intolerant to flecainide due to elevated LFTs and since then was diagnosed with CAD and can no longer be on flecainide for that reason as well. Could consider additional of an alternative AAD. Cre 0.7 and QTc 451 ms in SR on
ECG from 03/12/25 at 0113. LFTs up on admission on labs reviewed by me, AST/ALT 52/107
-Outpatient dose of Xarelto 20 mg daily has been continued
-pro-BNP 2780 which is her highest on record. Will try Lasix 20 mg IV x1 now. Patient is not chronically on a diuretic prior to admission.
-EF was 55-60% with moderate to severe by last echo 11/09/24.
-Coreg as above.
-Patient is not chronically on KENYA/ARB/ARNI/aldosterone antagonist and pending BP response to diuresis could add.
-Patient with moderate to severe peak/mean 50/23 and RISHI 0.8 cm sq by echo 11/09/24.
-No previous work-up for SAVR/TAVR, but now with CHF.
-Patient with known SARAHI and attempted a course of treatment in 2021, but had trouble tolerating therapy and it was stopped. Last CT at [facility] was stable. Will ask Pulm to see
--- NOTE | 2025-03-12 08:09 | W.PN.HOSP.TC ---
Today's Communication/Plan
-
see A/P
Assessment / Plan
Assessment / Plan
84-year-old female with past medical history significant for CAD status post PCI, atrial fibrillation on anticoagulation, history of SARAHI without completing full course of treatment, who presented with cough, fevers and shortness of breath.
Cough productive with green sputum; fever, shortness of breath worsening over the past few days. Recent URI/seasonal allergy symptoms. No known sick contacts and no recent travels.
CT chest shows multiple centrilobular nodules and groundglass opacity throughout all lungs, moderate right pleural effusion, multifocal areas of consolidation likely represent infection.
While in the emergency department patient developed supraventricular tachycardia after a dose of Decadron and albuterol for wheezing. Patient also had a transient drop in her blood pressure and had to be given a bolus of normal saline. Appears to
be multifocal atrial tachycardia. This was sent to cardiology with recommended initiating digoxin.
A/P:
# CAP
COVID/Flu negative
Follow CT formal report
Check MRSA screen
Check Urine Legionella and Strep Ag
Check sputum Cx
Continue doxy and ceftriaxone
supportive measures, Duoneb PRN, Mucinex
# Supraventricular tachycardia
# Paroxysmal atrial fibrillation.
s/p digoxin load per Card
continue home coreg 3.125 BID
continue home rivaroxaban
Check echo
Cardiology consult
# CAD
Continue plavix, Lipitor, coreg
DVT PPX - on rivaroxaban
Code status - full code
Anticipated Discharge: > 48 hours
Subjective/Interval History
-
Date of Service: March 12, 2025
Objective Data
-
Labs:
Laboratory Results
03/12/25
05:53
WBC 10.9 H
Hgb 11.1 L
Hct 31.8 L
Plt Count 253
Sodium 140
Potassium 4.1
Chloride 111 H
Carbon Dioxide 23
BUN 12
Creatinine 0.7
Glucose 154 H
Calcium 8.6
Vital Signs:
Vital Signs
Temp Pulse Resp BP Pulse Ox
37.2 C 76 16 105/63 93
03/12/25 05:00 03/12/25 06:05 03/12/25 06:05 03/12/25 06:05 03/12/25 06:05
Review of Systems
-
History Source: Patient
Respiratory: Reports Cough
Physical Exam
-
General: Well Developed, Well Nourished, No Apparent Distress, Comfortable and Conversant; Negative Respiratory Distress
HEENT: Normocephalic, Atraumatic, Nose Appears Normal and Ears Appear Normal; Negative Oxygen
Respiratory: Clear to Auscultation and Non Labored Respirations; Negative Accessory Resp Muscle Use
Cardiac: Regular Rhythm and S1/S2
GI: Soft, Nontender, Nondistended and Normal Bowel Sounds
Skin: Warm and Dry
Neuro: Awake, Alert, Oriented and AO x 3
Psych: Calm and Intact Judgement/Insight
Data Reviewed
-
Labs: Labs Reviewed by me
--- NOTE | 2025-03-12 08:43 | EDRN ---
pts level of care changed from IMU to Tele by Dr. Sifuentes
--- NOTE | 2025-03-12 08:57 | EDRN ---
cardiology currently at the pts bedside
--- NOTE | 2025-03-12 08:59 | EDRN ---
the pt pressed the call andersen and this RN entered the pts room, the pt stated that she needed to use the bathroom, the pt was able to stand independently at the bedside and use the bedside commode with no issues, HR remained in the 70's
--- NOTE | 2025-03-12 09:12 | CON.PUL ---
Consultation
Consultation Request
Date/Time Consultation Requested: 03/12/2025-9 AM
Date/Time Consultation Performed: 03/12/2025-9:30 AM
Requesting Provider: Cardiology
Performing Provider: Dr. Xie
Reason for Consultation: Shortness of breath
Medical History
-
Chief Complaint: Shortness of breath
History of Present Illness:
83-year-old female with a history of CAD/stent, atrial fibrillation on anticoagulation, lymphoma taking care at [facility] with history of SARAHI without completing a full course of treatment who presented with cough, fevers and shortness of breath
noted to have pneumonia-pulmonary consulted for pneumonia/SARAHI 03/12/2025. She reports being in usual state of health until couple days prior to admission. She did have fevers, chills, and some mild increasing shortness of breath. She currently
denies chest pain, chest tightness, productive cough, but had some dyspnea on exertion. She offers no complaints of abdominal pain, nausea, leg swelling or weakness.
Past Medical History
Past Medical History: None (CAD/stent. PAF/anticoagulation. Lymphoma status post R-CHOP 2019. Hypertension. COPD. SARAHI.)
Social History
Tobacco: Non-smoker
Alcohol: None
Drug: None
Personal:
Living: With Family
Occupational Exposures: no known asbestos exposure
Environmental Exposures: no known tuberculosis exposure
Family History
Family History: Reviewed & Not Pertinent
Allergies / Home Medications
Allergies
Allergy/AdvReac Type Severity Reaction Status Date / Time
grass pollen Allergy nasal Verified 03/11/25 16:54
symptoms
Home Medications
�Medication �Instructions �Recorded �Confirmed �Last Taken �Type
carvedilol 3.125 mg tablet 3.125 mg PO BID Blood pressure 03/09/22 03/12/25 03/09/22 History
duloxetine 30 mg capsule,delayed 30 mg PO HS Mental Health/Anxiety 03/09/22 03/12/25 03/08/22 History
release
umeclidinium 62.5 mcg-vilanterol 1 ea IH R DAILY Lung/breathing 03/09/22 03/12/25 03/09/22 History
25 mcg/actuation powdr for issues
inhalation (Anoro Ellipta)
atorvastatin 40 mg tablet 40 mg PO QPM High cholesterol #30 03/10/22 03/12/25 Unknown Rx
tabs
clopidogrel 75 mg tablet 75 mg PO DAILY Heart 03/10/22 03/12/25 Unknown Rx
disease/condition #30 tabs
rivaroxaban 20 mg tablet (Xarelto) 20 mg PO DAILY 03/12/25 03/12/25 Unknown History
Review of Systems
-
Unable to Obtain full review of systems at this time due to: Other ( per HPI)
Vitals / Labs / Diagnostic Testing
Vital Signs
Temp Pulse Resp BP Pulse Ox
98.5 F 70 18 122/71 96
03/12/25 08:10 03/12/25 08:45 03/12/25 08:45 03/12/25 08:35 03/12/25 08:45
Lab Data
03/12/25 05:53
03/12/25 05:53
Microbiology
03/12/25 05:53 Nasal Swab Influenza Types A & B (YAJAIRA) - Final
Negative for Influenza A & B, NAAT
Negative results must be combined with clinical observations
and patient history.
Nucleic Acid Amplification test (NAAT)performed on the
[employer] platform.
Diagnostic Testing:
Physical Exam
-
Exam:
well-nourished and well-developed in no apparent distress
HEENT-atraumatic, normocephalic
Neck-supple, no JVD, no bruit
Heart-regular rate and rhythm-no murmurs, rubs or gallops
Chest-clear to auscultation, no wheezes, crackles
Back-no tenderness
Abdomen-soft, nontender, nondistended, no hepatosplenomegaly
Extremities-no cyanosis, clubbing, edema and good peripheral pulses
Integument-intact, no rashes, lesions or ecchymosis
Neurology-alert and oriented, nonfocal motor and sensory exam
Assessment
-
83-year-old female with a history of CAD/stent, atrial fibrillation on anticoagulation, lymphoma taking care at [facility] with history of SARAHI without completing a full course of treatment who presented with cough, fevers and shortness of breath
noted to have pneumonia-pulmonary consulted for pneumonia/SARAHI 03/12/2025.
Pneumonia
Uncontrolled atrial fibrillation/atrial tachycardia
Leukocytosis
Mild normocytic anemia-hemoglobin 11.1
Hyperglycemia
Elevated LFTs
Conditions present prior to admission:
CAD/stent.
PAF/anticoagulation.
Lymphoma status post R-CHOP 2019.
Hypertension.
COPD.
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 Lopez at [facility]
Aortic stenosis-moderate to severe
Plan
Suspect respiratory decompensation is multifactorial-chronic SARAHI infection, new probable bacterial community-acquired pneumonia in immunocompromised patient along with uncontrolled atrial fibrillation
Supplemental oxygen as needed
Mucolytic's
Incentive spirometry
Mucus clearing devices
Aspiration precautions
Check cultures
Rocephin and doxycycline continue
Patient was intolerant to multi drug SARAHI therapy in the past
Consider reculturing and trying different regiment including potential amikacin nebulized therapy
Consider infectious disease consultation
Follow leukocytosis Xarelto continues
Monitor hemoglobin
Transfuse as needed
Cardiology following-correspondence reviewed
Atrial fibrillation rate controlled
Follow blood sugar
Insulin supplementation as needed
DVT prophylaxis-on Xarelto
Nutrition
Early mobilization
Reviewed with ED nursing, as well as multiple family members including her at the bedside in the emergency room
Last saw Dr. Perez 11/07/2017- she now follows at [facility] with Dr Lopez
Diagnostic data:
Linear opacifications likely chronic
Chest x-ray 07/22/2018-small right upper lobe acinar linear opacification likely chronic
Chest x-ray 03/09/2022-new airspace disease most pronounced in the right lower lobe consistent with pneumonia and pulmonary findings consistent with changes of COPD
Chest x-ray 04/10/2024-chronic atypical infection such as SARAHI
CT chest 03/12/[id number] review patchy areas of nodular infiltrates and tree-in-bud consistent with known history of SARAHI as well as focal consolidations that could represent superimposed pneumonia
Echocardiogram 11/09/2024-EF 55-60%, trivial mitral regurgitation, aortic stenosis with an valve area 0.8 cm
Data Reviewed
-
EKG: Report reviewed by me
Radiology: Report reviewed by me
CT Scan: Image personally visualized and interpreted and Report reviewed by me
Medical Tests (Nuc Med, Echo etc): Report reviewed by me
Labs: Labs reviewed by me
Old Records: Reviewed
Total Time Spent with Patient (in minutes): 65
[2025-03-12] MEDS: VIBRAMYCIN 100 MG PO ×2 (09:37→19:58)
[2025-03-12] MEDS: MUCINEX 600 MG PO ×2 (09:38→19:58)
[2025-03-12] MEDS: LASIX 20 MG IV (09:38)
[2025-03-12] MEDS: COREG 6.25 MG PO ×2 (10:26→19:58)
[2025-03-12] MEDS: XARELTO 20 MG PO (10:26)
[2025-03-12] MEDS: NON-FORMULARY ITEM INH (10:30)
--- NOTE | 2025-03-12 11:00 | EDRN ---
Madison from physical therapy came to the pts bedside and the pt is refusing PT now and stating that she wants to do it later, Madison from physical therapy stated to this RN that she would be back at a later time
--- NOTE | 2025-03-12 11:10 | EDRN ---
the pts daughter approached this RN at the nurses station and asked this RN if the pt had a fever, this RN notified the pts daughter that the pt was afebrile this AM
--- NOTE | 2025-03-12 11:25 | EDRN ---
the pts daughter approached this RN at the nurses station and asked this RN when the pts Echo will bed done, this RN stated that this RN was not exactly sure however this RN notified the pts daughter that this RN will update the pts daughter when
this RN finds out
--- NOTE | 2025-03-12 11:28 | EDRN ---
pulmonology currently at the pts bedside
--- NOTE | 2025-03-12 12:00 | EDRN ---
physical therapy currently at the pts bedside
[2025-03-12] MEDS: ROBITUSSIN DM 5 ML PO (14:02)
[2025-03-12] MEDS: TYLENOL 650 MG PO (14:02)
--- NOTE | 2025-03-12 14:57 | EDRN ---
this RN entered the pts room to check on the pt and the pt stated that she had right sided chest pain and right shoulder pain, this RN notified Pauly Sotelo DOUBLING MACHINE OPERATOR
--- NOTE | 2025-03-12 14:59 | W.PN.UPDATE ---
Update Note
Progress Note Update
CTSP for chest pain. Patient, daughter and in the room. Patient's daughter reports that patient told her around lunchtime that she was having chest pain and didn't want to forget to tell someone. No resting chest pain. No pain currently. ECG
and Troponin ordered by me. I helped perform ECG in the room and reviewed once complete, patient is in SR and no acute ischemic changes. Troponin pending, Troponin trend 0.015 and then 0.014 on admission. Echo still pending. Patient seen by Pulm and
we reviewed PMH including SARAHI and previous intolerance to treatment due to symptoms of nausea and diarrhea. Cultures pending and ID consult as needed pending results. 32 min critical care time face to face and coordinating care.
--- NOTE | 2025-03-12 15:04 | EDRN ---
EKG being performed troponin drawn and sent
--- NOTE | 2025-03-12 15:14 | EDRN ---
this RN called the receiving IVU nurse Crystal JONES and gave verbal report
--- NOTE | 2025-03-12 15:18 | EDRN ---
Pauly Sotelo MANAGER PAPER currently at the pts bedside
[2025-03-12 15:36] LABS: Troponin I < 0.012 ng/ml
--- NOTE | 2025-03-12 16:59 | PTCARENOTE ---
Received the patient from the ED in a stretcher. The patient is aaox4, vital signs are stable. NSR is noted on the monitor. She ambulated to the bed without difficulty or assist. She stated that she didn't feel SOB while ambulating. Her lungs are
coarse throughout and she has a frequent moist productive cough that is clear in nature. I oriented her to her room, her call andersen is within reach, and her family is at the bedside.
[2025-03-12] MEDS: LIPITOR PO (17:14)
--- NOTE | 2025-03-12 17:16 | PTCARENOTE ---
I held the patient's the Lipitor due to abnormal LFTs per cardiovascular's note.
[2025-03-12] MEDS: CYMBALTA DELAYED RELEASE 30 MG PO (21:11)
--- NOTE | 2025-03-12 22:32 | PTCARENOTE ---
Received patient at change of shift. SR on the monitor, HR in the 70s. Frequent, productive cough with clear sputum. No complaints from pt at this time, call andersen within reach.
[2025-03-12] MEDS: ROCEPHIN 1000 MG IV (23:34)
[2025-03-12] MEDS: STERILE WATER FOR INJECTION 10 ML IV (23:34)
[2025-03-13] VITALS (8 sets, daily range): BP systolic 90–120; BP diastolic 55–81; BMI 23.4
[2025-03-13 05:30] LABS: % Basophils 0.2 % (0-2); % Lymphocytes 5.8 % (20.5-51.1); % Monocytes 5.3 % (1.7-9.3); % Neutrophils 87.7 % (42.2-75.2); Absolute Immature Granulocytes 0.1 10^3/uL (0-0.05); Absolute Lymphocytes 0.8 10^3/uL (1.2-3.4); Absolute Monocytes 0.8 10^3/uL (0.1-0.6); Absolute Neutrophils 12.7 10^3/uL (1.4-6.5); Hematocrit 33.9 % (37.0-47.0); Hemoglobin 11.9 g/dL (12.0-16.0); Mean Corp Hgb Conc. 35.1 g/dL (33.0-37.0); Mean Corpuscular Volume 82.5 fL (81.0-99.0); Mean Platelet Volume 11.2 fL (7.4-10.4); Nucleated Red Blood Cells % 0 %; Platelet Count 325 10^3/uL (130-400); Red Blood Cell Count 4.11 10^6/uL (4.20-5.40); Red Cell Dist. Width 12.9 % (11.5-14.5); White Blood Cell Count 14.5 10^3/uL (4.8-10.8)
[2025-03-13 05:54] LABS: Blood Urea Nitrogen 20 mg/dl (7-17); Calcium 9.3 mg/dl (8.4-10.2); Carbon Dioxide 26 mmol/L (22-30); Chloride 111 mmol/L (98-107); Estimated Creatinine Clearance 64 ml/min; Glucose 151 mg/dl (70-99); Magnesium 2.1 mg/dl (1.6-2.3); Potassium 4.2 mmol/L (3.5-5.1); Sodium 143 mmol/L (135-145); eGFR > 60.00
[2025-03-13] MEDS: NON-FORMULARY ITEM 1 UNIT INH (08:07)
[2025-03-13] MEDS: VIBRAMYCIN 100 MG PO ×2 (09:13→19:26)
[2025-03-13] MEDS: MUCINEX 600 MG PO ×2 (09:16→19:26)
[2025-03-13] MEDS: COREG PO (09:17)
--- NOTE | 2025-03-13 09:21 | W.PN.PUL.V3 ---
Today's Communication / Plan
-
Cultures unrevealing
Wean oxygen
Increase activity
Troponin trended
Echocardiogram pending
Continue antibiotics
Assessment
-
83-year-old female with a history of CAD/stent, atrial fibrillation on anticoagulation, lymphoma taking care at [place] with history of SARAHI without completing a full course of treatment who presented with cough, fevers and shortness of breath
noted to have pneumonia-pulmonary consulted for pneumonia/SARAHI 03/12/2025.
Pneumonia
Uncontrolled atrial fibrillation/atrial tachycardia
Leukocytosis
Mild normocytic anemia-hemoglobin 11.1
Hyperglycemia
Elevated LFTs
Conditions present prior to admission:
CAD/stent.
PAF/anticoagulation.
Lymphoma status post R-CHOP 2019.
Hypertension.
COPD.
SARAHI-treatment course attempted 2021-trouble tolerating therapy and was stopped-[employer], Dr. Lopez at [facility]
Aortic stenosis-moderate to severe
Plan
Suspect respiratory decompensation is multifactorial-chronic SARAHI infection, new probable bacterial community-acquired pneumonia in immunocompromised patient along with uncontrolled atrial fibrillation
Supplemental oxygen as needed-currently on room air
Mucolytic's--on Mucinex
Incentive spirometry
Mucus clearing devices if needed
Cultures
Aspiration precautions
Cultures reviewed
Urine Legionella and streptococcal Ag negative
Sputum culture-usual respiratory karey
MRSA screen pending
Influenza negative
Rocephin and doxycycline continue hopefully can convert to oral next 24 hours to finish a 5-day course as an outpatient with radiographic follow-up
Patient was intolerant to multi drug SARAHI therapy in the past
Consider reculturing and trying different regiment including potential amikacin nebulized therapy
Consider infectious disease consultation
Follow leukocytosis
Follow temperature curve-last temperature 03/12/2020 5-101.4-since then afebrile
Monitor hemoglobin
Transfuse as needed
Cardiology following-correspondence reviewed
Atrial fibrillation rate controlled
Xarelto continues
Troponin trended-negative
No acute EKG changes with atypical chest pain
Echocardiogram pending
Follow blood sugar
Insulin supplementation as needed
DVT prophylaxis-on Xarelto
Nutrition
Early mobilization
Reviewed with ED nursing, as well as multiple family members including her at the bedside in the emergency room
Last saw Dr. ePrez 11/07/2017- she now follows at [facility] with Dr Lopez-when discharged follow-up with outpatient display and banner designer at [place]
Diagnostic data:
Linear opacifications likely chronic
Chest x-ray 07/22/2018-small right upper lobe acinar linear opacification likely chronic
Chest x-ray 03/09/2022-new airspace disease most pronounced in the right lower lobe consistent with pneumonia and pulmonary findings consistent with changes of COPD
Chest x-ray 04/10/2024-chronic atypical infection such as SARAHI
CT chest 03/12/[id number] review patchy areas of nodular infiltrates and tree-in-bud consistent with known history of SARAHI as well as focal consolidations that could represent superimposed pneumonia
Echocardiogram 11/09/2024-EF 55-60%, trivial mitral regurgitation, aortic stenosis with an valve area 0.8 cm
Subjective Data
-
Date of Service:
Date of Service: March 13, 2025
Chief Complaint: Pulmonary Follow Up and Dyspnea Follow Up
Subjective:
Feels better, on room air, some cough with minimal sputum production, some atypical right-sided chest pain, no abdominal pain
Review of Systems
General: Other (Per HPI)
Objective Data
Data Reviewed
Vital Signs / I&O:
Vital Signs
Temp Pulse Resp BP Pulse Ox
98.1 F 75 18 111/66 94
03/13/25 09:03 03/13/25 08:13 03/13/25 09:03 03/13/25 05:00 03/13/25 09:09
SaO2: 94
Physical Exam
General: Respiratory Distress (n) and Comfortable
HEENT: Normocephalic and Anicteric
Cardiovascular: Regular Rhythm
Respiratory: Wheeze (n), Crackles (Rare basilar), Rhonchi (n), Non-Labored Respirations, Accessory Resp Muscle Use (n) and Stridor
GI: Soft, Non Distended and Non Tender
Neurology: Awake, Alert and No Motor Deficits
Skin: Warm, Good Color, Cyanosis (n), Jaundice (n) and Rash (n)
Labs/Micro/Reports
Lab Data
03/13/25 05:06
03/13/25 05:06
Microbiology
03/12/25 08:46 Sputum Respiratory Culture - Preliminary
Usual Respiratory Karey
03/12/25 08:46 Sputum Gram Stain - Preliminary
03/12/25 08:46 Urine Legionella Urinary Antigen - Final
Negative for Legionella pneumophila Serogroup 1 antigen.
A negative result does not rule out the possiblity of
Legionella infection due to other serogroups or species of
Legionella. Clinical correlation is recommended.
03/12/25 08:46 Urine Streptococcus pneumoniae Antigen (M - Final
Negative for Streptococcus pneumoniae antigen.
A negative result does not exclude infection with
Streptococcus pneumoniae. Clinical correlation is
recommended.
03/12/25 05:53 Nasal Swab Influenza Types A & B (YAJAIRA) - Final
Negative for Influenza A & B, NAAT
Negative results must be combined with clinical observations
and patient history.
Nucleic Acid Amplification test (NAAT)performed on the
[employer] platform.
[2025-03-13] MEDS: COREG 12.5 MG PO (10:37)
[2025-03-13] MEDS: XARELTO PO (10:37)
--- NOTE | 2025-03-13 11:47 | W.PN.HOSP.TC ---
Addendum entered and electronically signed by Tiera Sifuentes MD 03/13/25 16:02:
# Sepsis, POA
Original Note:
Today's Communication/Plan
-
see A/P
Assessment / Plan
Assessment / Plan
84-year-old female with past medical history significant for CAD status post PCI, atrial fibrillation on anticoagulation, history of SARAHI without completing full course of treatment, who presented with cough, fevers and shortness of breath.
Cough productive with green sputum; fever, shortness of breath worsening over the past few days. Recent URI/seasonal allergy symptoms. No known sick contacts and no recent travels.
CT chest shows multiple centrilobular nodules and groundglass opacity throughout all lungs, moderate right pleural effusion, multifocal areas of consolidation likely represent infection.
While in the emergency department patient developed supraventricular tachycardia after a dose of Decadron and albuterol for wheezing. Patient also had a transient drop in her blood pressure and had to be given a bolus of normal saline. Appears to
be multifocal atrial tachycardia. This was sent to cardiology with recommended initiating digoxin.
A/P:
# CAP
CT report noted 1. Severe bilateral multifocal pneumonia. 2. Small right pleural effusion.
COVID/Flu negative, Urine Legionella and Strep Ag negative, sputum with usual respiratory karey
Follow MRSA screen
Continue doxy and ceftriaxone
supportive measures, Duoneb PRN, Mucinex
pulm on board in setting of h/o SARAHI
# Supraventricular tachycardia
# Paroxysmal atrial fibrillation.
s/p digoxin load per Card
home coreg increased to 6.25 mg p.o. twice daily by card
check echocardiogram.
Cardiology on board
# CAD
Continue plavix, Lipitor, coreg
DVT PPX - on rivaroxaban
Code status - full code
DW at bedside
Anticipated Discharge: Within 24 hours
Subjective/Interval History
-
Date of Service: March 13, 2025
Objective Data
-
Labs:
Laboratory Results
03/13/25
05:06
WBC 14.5 H
Hgb 11.9 L
Hct 33.9 L
Plt Count 325 D
Sodium 143
Potassium 4.2
Chloride 111 H
Carbon Dioxide 26
BUN 20 H
Creatinine 0.6
Glucose 151 H
Calcium 9.3
Vital Signs:
Vital Signs
Temp Pulse Resp BP Pulse Ox
36.7 C 79 18 116/81 94
03/13/25 09:03 03/13/25 10:37 03/13/25 09:03 03/13/25 10:37 03/13/25 09:21
Review of Systems
-
History Source: Patient
Respiratory: Reports Cough
Physical Exam
-
General: Well Developed, Well Nourished, No Apparent Distress, Comfortable and Conversant; Negative Respiratory Distress
HEENT: Normocephalic, Atraumatic, Nose Appears Normal and Ears Appear Normal; Negative Oxygen
Respiratory: Clear to Auscultation and Non Labored Respirations; Negative Accessory Resp Muscle Use
Cardiac: Regular Rhythm and S1/S2
GI: Soft, Nontender, Nondistended and Normal Bowel Sounds
Skin: Warm and Dry
Neuro: Awake, Alert, Oriented and AO x 3
Psych: Calm and Intact Judgement/Insight
Data Reviewed
-
CT Scan: Report Reviewed by me
Labs: Labs Reviewed by me
--- NOTE | 2025-03-13 12:06 | W.PN.CARDCBS ---
Addendum entered and electronically signed by Tod Steiner MD 03/13/25 13:51:
I saw and examined the patient.
The Associate Account Director's note was reviewed and I agree with the note.
Comment:
GEN: No distress, awake, Ox3
HEENT: supple, anicteric, mmm
LUNGS: scatt rhonchi
CV: Reg, S1/S2, 2/6 syst LSB, no gallop
ABD: soft, BS+, NT/ND
EXT: No edema
NEURO: Gross non-focal
SKIN: No rash
Plan:
Overall doing better. We will get echo today to reevaluate aortic valve.
No further episodes of SVT. Continue Coreg at 6.25 mg p.o. twice daily.
Blood pressure remains marginal so we will hold off on higher dose of Coreg.
Continue antibiotics and Xarelto.
Original Note:
Today's Communication / Plan
-
No additional Lasix
Hypotension with higher dose Coreg, dose lowered
Echo pending, I called and she will be the next study
Impression / Plan
-
PCP: Dr. Frederick
Cardiology: Dr. Norma Carlson
Impression:
Admitted with CAP and Atach 03/11/25
CAP
Paroxysmal Atach with RVR
Paroxysmal typical atrial flutter s/p ablation 2012
Paroxysmal Afib
previously intolerant to Flecainide
Chronic Xarelto OAC
CAD s/p 3.5 mm Xience prox LAD 03/10/22
SARAHI
Lymphoma
previously received received Adriamycin and Rituxan
completed R-CHOP chemo 02/2020
Elevated LFTs
Echo 01/14/22: EF 55-60%, LV global endocardial peak strain measures -15%, mild mR, mild to mod peak/mean 34/21 mmHg an d RISHI 1.1 cm sq
Echo 11/09/23: EF 59%, mild conc LVH, mild MR, mild aortic regurgitation, mod peak/mean 34/22 mmHg RISHI 1.0 cm sq, mod TR with PAP 29 mmHg
Echo 11/09/24: EF 55-60%, normal wall motion, normal RV size and function, moderate to severe peak/mean 50/23 mmHg and RISHI 0.8 cm sq, mod TR with PAP 41 mmHg,
Plan:
-Intermittent symptomatic improvement. No recurrence of fever. Respiratory culture with usual respiratory karey. Pulm following and currently ordered Rocephin and doxycycline and will probably transition to oral antibiotics on 03/14/25.
-Patient with known SARAHI and attempted a course of treatment in 2021, but had trouble tolerating therapy and it was stopped. Last CT at [facility] was stable.
-From a cardiac standpoint, patient with rapid, symptomatic MAT on admission shortly after a nebulizer treatment. No recurrence. Patient responded to digoxin 500 mcg IV x1 at that time. No plans for additional digoxin at this time.
-Patient developed symptomatic hypotension with attempt at higher dose of Coreg 12.5 mg BID so dose reduced back to 6.25 mg BID
-Patient with h/o paroxysmal atrial flutter/fib/tach and was previously intolerant to flecainide due to elevated LFTs and since then was diagnosed with CAD and can no longer be on flecainide for that reason as well. Consideration of alternative AAD
(amiodarone or Tikosyn) given, but overall MAT has improved with treatment of PNA and avoidance of albuterol. Cre 0.6 on labs reviewed by me 03/13/25. QTc 451 ms in SR on ECG from 03/12/25 at 0113. LFTs elevated at AST/ALT 52/107 on admission and
repeat LFTs ordered 03/14/25.
-Outpatient dose of Xarelto 20 mg daily has been continued
-pro-BNP 2780 on admission and given Lasix 20 mg IV x1 with increase urine output and symptomatic improvement although also being treated for PNA. Now hypotensive and BUN up to 20. No additional Lasix at this time. Patient is not chronically on a
diuretic prior to admission.
-Repeat echo pending. EF was 55-60% with moderate to severe by last echo 11/09/24.
-Coreg as above.
-Patient is not chronically on KENYA/ARB/ARNI/aldosterone antagonist and will not add at this time due to symptomatic hypotension.
-Patient with moderate to severe peak/mean 50/23 and RISHI 0.8 cm sq by echo 11/09/24.
-No previous work-up for SAVR/TAVR, but now with CHF.
HPI: Patient was sent from the cardiology office to the ER yesterday with SOB, cough and fever and is now admitted with PNA and cardiology is consulted for paroxysmal Atach. Patient has a h/o paroxysmal typical atrial flutter and had ablation in
2012. Patient later had paroxysmal Afib and was on Flecainide, but had elevated LFTs and it was stopped. Patient was een by [facility] for a 2nd opinion and opted to manage conservatively with meds and OAC. Patient wore a monitor in 2021 and had Atach up
to 39 beats. Patient also diagnosed with lymphoma and initially had Adriamycin and Rituxan and then completed R-CHOP in 02/2020 managed at [facility]. Patient also has SARAHI and saw [facility] 01/17/[address] was stable so she is not chronically on meds due to
lack of symptoms as well and of note previously treated in 2021 and had trouble tolerating therapy. In the office yesterday patient c/o fever and cough and was referred to the ER and was found to have PNA. Fever overnight up to 101.4 degrees
Fahrenheit and patient started on azithromycin and Rocephin. Patient also felt palpitations Tuesday night that felt like previous Afib and then in the ER last night after a breathing treatment she had MAT with resultant hypotension and was given
digoxin 500 mcg IV x1 and is now in SR.
Progress Note - Veterinary Anatomist
Subjective
Date of Service: March 13, 2025
She feels better, sometimes coughing less and sometimes coughing is not better
Objective
Labs:
03/13/25 05:06
03/13/25 05:06
Labs
Hgb 11.9 g/dL (12.0-16.0) L 03/13/25 05:06
Hct 33.9 % (37.0-47.0) L 03/13/25 05:06
Plt Count 325 10^3/uL (130-400) D 03/13/25 05:06
Sodium 143 mmol/L (135-145) 03/13/25 05:06
Potassium 4.2 mmol/L (3.5-5.1) 03/13/25 05:06
BUN 20 mg/dl (7-17) H 03/13/25 05:06
Creatinine 0.6 mg/dL (0.6-1.0) 03/13/25 05:06
Glucose 151 mg/dl (70-99) H 03/13/25 05:06
Troponins
03/11/25 03/11/25 03/12/25
17:11 22:02 15:01
Troponin I 0.015 0.014 < 0.012
Vital Signs and I&O:
Vital Signs
Temp Pulse Resp BP Pulse Ox
97.3 F 72 20 90/55 99
03/13/25 11:49 03/13/25 11:49 03/13/25 11:49 03/13/25 11:49 03/13/25 11:59
Vital Signs
Temp Pulse Resp BP Pulse Ox
97.3 F 72 20 90/55 99
03/13/25 11:49 03/13/25 11:49 03/13/25 11:49 03/13/25 11:49 03/13/25 11:59
Physical Exam
Physical Exam
GEN: NAD. AAOx3
HEENT: EOMI, MMM
LUNGS: RA. No wheeze
CV: SR on tele.
EXT: No edema B/L
NEURO: Gross non-focal
SKIN: Warm, dry and pink. No rash
--- NOTE | 2025-03-13 15:23 | PN.CDI ---
CDI
- -
CDI:
Physician Documentation Request
Admit Date: 03/12/25 03:07
Dear Doctor Maria,
Clinical Indicators:
Patient admitted with community acquired pneumonia.
03/12 ED report, 'Patient presents with fever, chills, cough'
03/13 Pulmonary consult, '...chronic SARAHI infection, new probable bacterial community-acquired pneumonia in immunocompromised patient.'
Temp trend on admission:
03/11/25
16:59 03/12/25
00:49
Temp 100.5 F H 101.4 F H
HR/RR trend on admission:
03/12/25
00:30 03/12/25
01:20 03/12/25
01:30
Pulse 101 97 95
Resp Rate 30 28 33
03/12/25
02:30 03/12/25
03:00 03/12/25
03:40
Pulse 128 104 106
Resp Rate 23 28 23
Please clarify which of the following most accurately describes the status of the patient's infection:
Sepsis, POA
- Systemic manifestations of infection, with 2 or more SIRS criteria which include:
- Fever >100.9 degrees F or hypothermia < 96.8 degrees F
- Leukocytosis - WBC > 12,000 or leukopenia - WBC < 4,000 or > 10% bands
- Tachycardia > 90 beats per minute
- Tachypnea - RR > 20 breaths per minute or PaCO2 , 32mmHg
Source: Merck Manual 2013
Pneumonia Only, Without Systemic Illness
Other, please specify
Use of terms such as suspected, likely, concern for, or probable (associated with a specific diagnosis that is being evaluated, monitored, or treated as if it exists) are acceptable and can be coded in the inpatient setting, when documented at the
time of discharge.
Thank you,
LUPE Thomas RN
CDI Specialist
available via tiger text
Please use your independent medical judgment in providing your response.
--- NOTE | 2025-03-13 15:47 | CM ---
CM following for DC planning needs.
Met w/ patient, spouse and dtr. at bedside.
Pt. resides in a private, 2 STH w/ spouse. Functionally, patient reports that she is quite indep. at baseline w/ ADLs, mobility without the use of any assisted device.
Antic. DC plan is for home, no needs.
CM to follow.
--- NOTE | 2025-03-13 17:14 | W.PN.UPDATE ---
Update Note
Progress Note Update
Updated patient, and family friend at bedside about echo results. We talked about increase in MPG and that now looks more severe. We talked about what a TAVR work-up looks like in general and we also talked about what a TAVR procedure and
recovery might be for patient. We talked about potential pitfalls including renal function related to CT scans and cath. Will talk again in the morning when children are present.
[2025-03-13] MEDS: LIPITOR 40 MG PO (17:23)
[2025-03-13] MEDS: XARELTO 20 MG PO (17:23)
--- NOTE | 2025-03-13 18:06 | PTCARENOTE ---
Pt is afebrile, she denies any discomfort but has a non productive cough. She declines robitussin. Telemetry shows sinus rhythm at a rate @ 70's. Echo done at bedside.
[2025-03-13] MEDS: COREG 6.25 MG PO (19:26)
[2025-03-13] MEDS: CYMBALTA DELAYED RELEASE 30 MG PO (21:12)
--- NOTE | 2025-03-13 22:01 | PTCARENOTE ---
Received patient at change of shift. SR on the monitor, HR in the 70s. VSS on room air. Pt reports less sputum coming up with her cough. No complaints from pt at this time, call andersen within reach.
[2025-03-13] MEDS: STERILE WATER FOR INJECTION 10 ML IV (23:20)
[2025-03-13] MEDS: ROCEPHIN 1000 MG IV (23:20)
[2025-03-14 05:27] VITALS: BP 122/71
[2025-03-14 05:50] LABS: % Basophils 0.3 % (0-2); % Eosinophils 0.4 % (0-6); % Immature Granulocytes 0.9 % (0-0.5); % Lymphocytes 15.8 % (20.5-51.1); % Monocytes 8.1 % (1.7-9.3); % Neutrophils 74.5 % (42.2-75.2); Absolute Immature Granulocytes 0.1 10^3/uL (0-0.05); Absolute Lymphocytes 1.6 10^3/uL (1.2-3.4); Absolute Monocytes 0.8 10^3/uL (0.1-0.6); Absolute Neutrophils 7.8 10^3/uL (1.4-6.5); Hematocrit 32.9 % (37.0-47.0); Hemoglobin 11.1 g/dL (12.0-16.0); Mean Corp Hgb Conc. 33.7 g/dL (33.0-37.0); Mean Corpuscular Volume 83.1 fL (81.0-99.0); Mean Platelet Volume 10.5 fL (7.4-10.4); Nucleated Red Blood Cells % 0 %; Platelet Count 311 10^3/uL (130-400); Red Blood Cell Count 3.96 10^6/uL (4.20-5.40); Red Cell Dist. Width 13.4 % (11.5-14.5); White Blood Cell Count 10.4 10^3/uL (4.8-10.8)
[2025-03-14 06:21] LABS: ALT (SGPT) 48 U/L (0-35); AST (SGOT) 22 U/L (14-36); Albumin 2.9 g/dl (3.5-5.0); Alkaline Phosphatase 239 U/L (38-126); Blood Urea Nitrogen 22 mg/dl (7-17); Calcium 8.7 mg/dl (8.4-10.2); Carbon Dioxide 26 mmol/L (22-30); Chloride 109 mmol/L (98-107); Direct Bilirubin 0.1 mg/dl (0.0-0.4); Estimated Creatinine Clearance 64 ml/min; Glucose 96 mg/dl (70-99); Sodium 142 mmol/L (135-145); Total Bilirubin 0.3 mg/dl (0.2-1.3); Total Protein 6.1 g/dl (6.3-8.2); eGFR > 60.00
[2025-03-14 07:32] VITALS: BP 137/73
--- NOTE | 2025-03-14 08:04 | W.PN.PUL.V3 ---
Today's Communication / Plan
-
Continue antibiotics
Wean oxygen
Cardiology evaluation of severe aortic stenosis-contributing to her dyspnea on exertion
Assessment
-
83-year-old female with a history of CAD/stent, atrial fibrillation on anticoagulation, lymphoma taking care at [facility] with history of SARAHI without completing a full course of treatment who presented with cough, fevers and shortness of breath
noted to have pneumonia-pulmonary consulted for pneumonia/SARAHI 03/12/2025.
Pneumonia
Uncontrolled atrial fibrillation/atrial tachycardia
Leukocytosis
Mild normocytic anemia-hemoglobin 11.1
Hyperglycemia
Elevated LFTs
Conditions present prior to admission:
CAD/stent.
PAF/anticoagulation.
Lymphoma status post R-CHOP 2019.
Hypertension.
COPD.
SARAHI-treatment course attempted 2021-trouble tolerating therapy and was stopped-[place], Dr. Lopez at [facility]
Aortic stenosis-moderate to severe
Plan
Suspect respiratory decompensation is multifactorial-chronic SARAHI infection, new probable bacterial community-acquired pneumonia in immunocompromised patient along with uncontrolled atrial fibrillation
Supplemental oxygen as needed-currently on room air
Mucolytic's--on Mucinex
Incentive spirometry
Mucus clearing devices if needed
Aspiration precautions
Cultures reviewed
Urine Legionella and streptococcal Ag negative
Sputum culture-usual respiratory karey
MRSA screen pending
Influenza negative
Rocephin and doxycycline continue hopefully can convert to oral next 24 hours to finish a 5-day course as an outpatient with radiographic follow-up
Patient was intolerant to multi drug SARAHI therapy in the past
Consider reculturing and trying different regiment including potential amikacin nebulized therapy
Consider infectious disease consultation-as an outpatient-patient really does not wish to pursue SARAHI therapy As 'Been There, Done that'
Follow leukocytosis
Follow temperature curve-last temperature 03/12/2025-101.4-since then afebrile
Monitor hemoglobin
Transfuse as needed
Cardiology following-correspondence reviewed
Atrial fibrillation rate controlled
Xarelto continues
Troponin trended-negative
No acute EKG changes with atypical chest pain
Echocardiogram 03/13/2025-EF 60%, severe aortic stenosis, moderate aortic regurgitation
Consideration towards TAVR
Follow blood sugar
Insulin supplementation as needed
DVT prophylaxis-on Xarelto
Nutrition
Early mobilization
Reviewed with ED nursing, as well as multiple family members including her at the bedside in the emergency room
Last saw Dr. 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
Diagnostic data:
Linear opacifications likely chronic
Chest x-ray 07/22/2018-small right upper lobe acinar linear opacification likely chronic
Chest x-ray 03/09/2022-new airspace disease most pronounced in the right lower lobe consistent with pneumonia and pulmonary findings consistent with changes of COPD
Chest x-ray 04/10/2024-chronic atypical infection such as SARAHI
CT chest 03/12/20255004-daljydy-ft review patchy areas of nodular infiltrates and tree-in-bud consistent with known history of SARAHI as well as focal consolidations that could represent superimposed pneumonia
Echocardiogram 11/09/2024-EF 55-60%, trivial mitral regurgitation, aortic stenosis with an valve area 0.8 cm
Subjective Data
-
Date of Service:
Date of Service: March 14, 2025
Chief Complaint: Pulmonary Follow Up and Dyspnea Follow Up
Subjective:
Still with a nonproductive cough, some shortness of breath with exertion, no chest pain or abdominal pain
Review of Systems
General: Other (Per HPI)
Objective Data
Data Reviewed
Vital Signs / I&O:
Vital Signs
Temp Pulse Resp BP Pulse Ox
97.1 F 66 20 122/71 95
03/14/25 07:34 03/14/25 06:30 03/14/25 07:34 03/14/25 05:27 03/14/25 07:34
Intake and Output
03/13/25 03/14/25 03/15/25
06:59 06:59 06:59
Intake Total 240 / 240
Balance 240 / 240
SaO2: 95
Physical Exam
General: Respiratory Distress (n) and Comfortable
HEENT: Normocephalic and Anicteric
Cardiovascular: Regular Rhythm
Respiratory: Wheeze (n), Crackles (Rare basilar), Rhonchi (n), Non-Labored Respirations, Accessory Resp Muscle Use (n) and Stridor
GI: Soft, Non Distended and Non Tender
Neurology: Awake, Alert and No Motor Deficits
Skin: Warm, Good Color, Cyanosis (n), Jaundice (n) and Rash (n)
Labs/Micro/Reports
Lab Data
03/14/25 05:33
03/14/25 05:33
Microbiology
03/12/25 08:46 Nose MRSA Screen - Final
No Methicillin Resistant Staphylococcus aureus isolated.
03/12/25 08:46 Sputum Respiratory Culture - Preliminary
Usual Respiratory Karey
03/12/25 08:46 Sputum Gram Stain - Preliminary
03/12/25 08:46 Urine Legionella Urinary Antigen - Final
Negative for Legionella pneumophila Serogroup 1 antigen.
A negative result does not rule out the possiblity of
Legionella infection due to other serogroups or species of
Legionella. Clinical correlation is recommended.
03/12/25 08:46 Urine Streptococcus pneumoniae Antigen (M - Final
Negative for Streptococcus pneumoniae antigen.
A negative result does not exclude infection with
Streptococcus pneumoniae. Clinical correlation is
recommended.
03/12/25 05:53 Nasal Swab Influenza Types A & B (YAJAIRA) - Final
Negative for Influenza A & B, NAAT
Negative results must be combined with clinical observations
and patient history.
Nucleic Acid Amplification test (NAAT)performed on the
[employer] platform.
[2025-03-14] MEDS: NON-FORMULARY ITEM 1 UNIT INH (08:14)
[2025-03-14] MEDS: COREG 6.25 MG PO (08:49)
[2025-03-14] MEDS: MUCINEX 600 MG PO (08:49)
[2025-03-14] MEDS: VIBRAMYCIN 100 MG PO (08:49)
--- NOTE | 2025-03-14 09:32 | W.PN.HOSP.TC ---
Addendum entered and electronically signed by Tiera Sifuentes MD 03/14/25 13:29:
Discussed with cardiology, okay for DC for outpatient TAVR eval
Total DC time 40 minutes
Original Note:
Today's Communication/Plan
-
see A/P
Assessment / Plan
Assessment / Plan
84-year-old female with past medical history significant for CAD status post PCI, atrial fibrillation on anticoagulation, history of SARAHI without completing full course of treatment, who presented with cough, fevers and shortness of breath.
Cough productive with green sputum; fever, shortness of breath worsening over the past few days. Recent URI/seasonal allergy symptoms. No known sick contacts and no recent travels.
CT chest shows multiple centrilobular nodules and groundglass opacity throughout all lungs, moderate right pleural effusion, multifocal areas of consolidation likely represent infection.
While in the emergency department patient developed supraventricular tachycardia after a dose of Decadron and albuterol for wheezing. Patient also had a transient drop in her blood pressure and had to be given a bolus of normal saline. Appears to
be multifocal atrial tachycardia. This was sent to cardiology with recommended initiating digoxin.
A/P:
# CAP
CT report noted 1. Severe bilateral multifocal pneumonia. 2. Small right pleural effusion.
COVID/Flu negative, Urine Legionella and Strep Ag negative, sputum with usual respiratory karey, MRSA screen negative
Continue doxy and ceftriaxone
supportive measures, Duoneb PRN, Mucinex
pulm on board in setting of h/o SARAHI
# Supraventricular tachycardia
# Paroxysmal atrial fibrillation.
s/p digoxin load per Card
home coreg increased to 6.25 mg p.o. twice daily by card
echo: EF 68%. Normal right ventricular size and function. Severe aortic stenosis noted. Moderate aortic regurgitation. When compared to prior study on 11/09/2024, is now severe with aortic valve gradients increased to 51/35 from 50/23; AI is now
moderate.
Suspect dyspnea largely contributed by severe
Cardiology on board, discussed TAVR procedure
# CAD
Continue plavix, Lipitor, coreg
# Improved LFT, elevated suspect 2/2 reactive
Cont to monitor LFT
DVT PPX - on rivaroxaban
Code status - full code
Anticipated Discharge: 24 - 48 hours
Subjective/Interval History
-
Date of Service: March 14, 2025
Objective Data
-
Labs:
Laboratory Results
03/14/25
05:33
WBC 10.4
Hgb 11.1 L
Hct 32.9 L
Plt Count 311
Sodium 142
Potassium 4.0
Chloride 109 H
Carbon Dioxide 26
BUN 22 H
Creatinine 0.6
Glucose 96
Calcium 8.7
Total Bilirubin 0.3 D
AST 22
ALT 48 H
Alkaline Phosphatase 239 H
Vital Signs:
Vital Signs
Temp Pulse Resp BP Pulse Ox
36.2 C 87 16 137/73 95
03/14/25 07:34 03/14/25 08:15 03/14/25 08:15 03/14/25 07:32 03/14/25 08:52
I&O
03/13/25 03/14/25 03/15/25
06:59 06:59 06:59
Intake Total 240 / 240
Balance 240 / 240
Review of Systems
-
History Source: Patient
Respiratory: Reports Cough (intermittent) and Trouble Breathing
Physical Exam
-
General: Well Developed, Well Nourished, No Apparent Distress, Comfortable and Conversant; Negative Respiratory Distress
HEENT: Normocephalic, Atraumatic, Nose Appears Normal and Ears Appear Normal; Negative Oxygen
Respiratory: Clear to Auscultation and Non Labored Respirations; Negative Wheezes, Crackles or Accessory Resp Muscle Use
Cardiac: Regular Rhythm and S1/S2
GI: Soft, Nontender, Nondistended and Normal Bowel Sounds
Skin: Warm and Dry
Neuro: Awake, Alert, Oriented and AO x 3
Psych: Calm and Intact Judgement/Insight
Data Reviewed
-
CT Scan: Report Reviewed by me
Labs: Labs Reviewed by me
--- NOTE | 2025-03-14 10:00 | W.PN.CARDCBS ---
Addendum entered and electronically signed by Tod Steiner MD 03/14/25 19:59:
I saw and examined the patient.
The Professor Of Law's note was reviewed and I agree with the note.
Comment:
GEN: No distress, awake, Ox3
HEENT: supple, anicteric, mmm
LUNGS: scatt rhonchi
CV: Reg, S1/S2, 2/6 syst LSB, no gallop
ABD: soft, BS+, NT/ND
EXT: No edema
NEURO: Gross non-focal
SKIN: No rash
PLan:
Reviewed results of echo with patient at length. She now has severe aortic stenosis with symptoms of shortness of breath and heart failure with preserved ejection fraction.
She has had no further episodes of SVT. Continue Coreg 6.25 mg p.o. twice daily.
Will discharge on Lasix 20 mg daily as needed.
Continue treatments for pneumonia.
Will arrange follow-up with plans to proceed with cardiac cath and begin evaluation for TAVR.
Original Note:
Today's Communication / Plan
-
Lasix 20 mg daily PRN, parameters written on d/c instructions, e-scribed by me
Cardiology f/u arranged
52 min in face to face and coordination of care
Impression / Plan
-
PCP: Dr. Frederick
Cardiology: Dr. Norma Carlson
Impression:
Admitted with CAP and Atach 03/11/25
CAP
Paroxysmal Atach with RVR
Paroxysmal typical atrial flutter s/p ablation 2012
Paroxysmal Afib
previously intolerant to Flecainide
Chronic Xarelto OAC
CAD s/p 3.5 mm Xience prox LAD 03/10/22
SARAHI
Lymphoma
previously received received Adriamycin and Rituxan
completed R-CHOP chemo 02/2020
Elevated LFTs
Echo 01/14/22: EF 55-60%, LV global endocardial peak strain measures -15%, mild mR, mild to mod peak/mean 34/21 mmHg an d RISHI 1.1 cm sq
Echo 11/09/23: EF 59%, mild conc LVH, mild MR, mild aortic regurgitation, mod peak/mean 34/22 mmHg RISHI 1.0 cm sq, mod TR with PAP 29 mmHg
Echo 11/09/24: EF 55-60%, normal wall motion, normal RV size and function, moderate to severe peak/mean 50/23 mmHg and RISHI 0.8 cm sq, mod TR with PAP 41 mmHg
Echo 03/13/25: EF 68%, trace MR, severe peak/mean 51/35 mmHg and RISHI 0.8 cm sq, moderate aortic regurgitation, mod TR with PAP 37 mmHg
Plan:
-Continues to feel overall better. No recurrence of fever. Respiratory culture with usual respiratory karey. Pulm following and patient will complete an outpatient course of antibiotics. Patient was recommended to follow up with her outpatient
it support technician at [facility].
-Patient with known SARAHI and attempted a course of treatment in 2021, but had trouble tolerating therapy and it was stopped. Last CT at [facility] was stable.
-From a cardiac standpoint, patient with rapid, symptomatic MAT on admission shortly after a nebulizer treatment. No recurrence. Patient responded to digoxin 500 mcg IV x1 at that time. No plans for additional digoxin at this time.
-Patient developed symptomatic hypotension with attempt at higher dose of Coreg 12.5 mg BID so dose reduced back to 6.25 mg BID
-Patient with h/o paroxysmal atrial flutter/fib/tach and was previously intolerant to flecainide due to elevated LFTs and since then was diagnosed with CAD and can no longer be on flecainide for that reason as well. Consideration of alternative AAD
(amiodarone or Tikosyn) given, but overall MAT has improved with treatment of PNA and avoidance of albuterol. Cre 0.6 on labs reviewed by me 03/13/25. QTc 451 ms in SR on ECG from 03/12/25 at 0113. LFTs elevated at AST/ALT 52/107 on admission and
repeat LFTs are improved 03/14/25 labs reviewed by me.
-Outpatient dose of Xarelto 20 mg daily has been continued
-pro-BNP 2780 on admission and given Lasix 20 mg IV x1 with increase urine output and symptomatic improvement although also being treated for PNA. Now hypotensive and BUN up to 20. No additional Lasix at this time. Patient is not chronically on a
diuretic prior to admission.
-Repeat echo report reviewed and summarized above by me. Reviewed with patient and family on 03/14/25. Made a plan for an outpatient work-up and patient might seek a 2nd opinion ot [facility]. Echo images burned to disc and given to family prior to d/c.
-Coreg as above.
-Patient is not chronically on KENYA/ARB/ARNI/aldosterone antagonist and will not add at this time due to symptomatic hypotension.
-Stable for d/c from a cardiac standpoint, TT with hospitalist attending re: d/c to home
HPI: Patient was sent from the cardiology office to the ER yesterday with SOB, cough and fever and is now admitted with PNA and cardiology is consulted for paroxysmal Atach. Patient has a h/o paroxysmal typical atrial flutter and had ablation in
2012. Patient later had paroxysmal Afib and was on Flecainide, but had elevated LFTs and it was stopped. Patient was een by [facility] for a 2nd opinion and opted to manage conservatively with meds and OAC. Patient wore a monitor in 2021 and had Atach up
to 39 beats. Patient also diagnosed with lymphoma and initially had Adriamycin and Rituxan and then completed R-CHOP in 02/2020 managed at [facility]. Patient also has SARAHI and saw [facility] 01/17/[address] was stable so she is not chronically on meds due to
lack of symptoms as well and of note previously treated in 2021 and had trouble tolerating therapy. In the office yesterday patient c/o fever and cough and was referred to the ER and was found to have PNA. Fever overnight up to 101.4 degrees
Fahrenheit and patient started on azithromycin and Rocephin. Patient also felt palpitations Tuesday night that felt like previous Afib and then in the ER last night after a breathing treatment she had MAT with resultant hypotension and was given
digoxin 500 mcg IV x1 and is now in SR.
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
Subjective
Date of Service: March 14, 2025
Still coughing, but looking forward to going home
Objective
Labs:
03/14/25 05:33
03/14/25 05:33
Labs
Hgb 11.1 g/dL (12.0-16.0) L 03/14/25 05:33
Hct 32.9 % (37.0-47.0) L 03/14/25 05:33
Plt Count 311 10^3/uL (130-400) 03/14/25 05:33
Sodium 142 mmol/L (135-145) 03/14/25 05:33
Potassium 4.0 mmol/L (3.5-5.1) 03/14/25 05:33
BUN 22 mg/dl (7-17) H 03/14/25 05:33
Creatinine 0.6 mg/dL (0.6-1.0) 03/14/25 05:33
Glucose 96 mg/dl (70-99) 03/14/25 05:33
Troponins
03/11/25 03/11/25 03/12/25
17:11 22:02 15:01
Troponin I 0.015 0.014 < 0.012
Vital Signs and I&O:
Vital Signs
Temp Pulse Resp BP Pulse Ox
97.1 F 87 16 137/73 95
03/14/25 07:34 03/14/25 08:15 03/14/25 08:15 03/14/25 07:32 03/14/25 08:52
Vital Signs
Temp Pulse Resp BP Pulse Ox
97.1 F 87 16 137/73 95
03/14/25 07:34 03/14/25 08:15 03/14/25 08:15 03/14/25 07:32 03/14/25 08:52
Intake & Output
03/12/25 03/13/25 03/14/25 03/15/25
06:59 06:59 06:59 06:59
Intake Total 240 / 240
Balance 240 / 240
Physical Exam
Physical Exam
GEN: NAD. AAOx3
HEENT: EOMI, MMM
LUNGS: RA. No wheeze
CV: SR on tele.
EXT: No edema B/L
NEURO: Gross non-focal
SKIN: No rash
[2025-03-14 11:00] VITALS: BP 115/101
[2025-03-14 11:02] VITALS: BP 143/63
--- NOTE | 2025-03-14 13:11 | W.DCSUMMARY ---
Discharge Summary
Discharge Data
Date of Admission: 03/12/25
Date of Discharge: 03/14/25
-
Pending Results: No
Hospital Course
Principal Diagnosis:
Community-acquired pneumonia (CAP)
Now severe aortic stenosis
Supraventricular tachycardia
Mild transaminitis suspect reactive, improved. Check repeat LFT with PCP in 1 week
Chronic Diagnoses:�
Coronary artery disease status post PCI
Paroxysmal atrial fibrillation.
SARAHI without complication course of treatment
Consultations:�
Cardiology
Pulmonary
Procedures:�
None
Clinical course:�
This is a 84-year-old female with past medical history as stated above, who presented with cough, fevers and shortness of breath.
Problem 1:
CAP.
Her CT chest noted 1. Severe bilateral multifocal pneumonia. 2. Small right pleural effusion.
Her COVID/Flu tests were negative, Urine Legionella and Strep Ag were negative, sputum with usual respiratory karey, MRSA screen negative.
She received IV antibiotics ceftriaxone and doxycycline while in the hospital, and was discharged with oral cefdinir and doxycycline for 2 more days (total antibiotic course 5 days).
Problem 2:
Supraventricular tachycardia
Status post digoxin load per cardiology.
Her home Coreg was increased from 3.125 to 6.25 mg p.o. twice daily.
Her echo showed EF 68%. Normal right ventricular size and function. Severe aortic stenosis noted. Moderate aortic regurgitation. When compared to prior study on 11/09/2024, is now severe with aortic valve gradients increased to 51/35 from 50/23;
AI is now moderate.
He has been informed to follow-up with cardiology outpatient for TAVR procedure evaluation.
As for the rest of her medical problems, they were stable during her hospital stay.
Discharge Plan
-
Patient Disposition: Home (Routine Discharge)
Discharge Diagnosis/Procedures: Bilateral multifocal pneumonia;
Supraventricular tachycardia;
Paroxysmal atrial fibrillation;
Severe aortic stenosis (follow up with cardiology for TAVR eval)
Condition: Fair
Diet: 2 Gram Sodium and Restrict fluids to 64 oz
Activity: As tolerated
Driving Restrictions: As prior to admission
Bathing Restrictions: None
Blood Work: CMP in 1 week with your PCP
Specialty Instructions: Weigh Daily- Call MD for wt gain/loss 3 lbs overnight/5 lbs in 1 week
Referrals:
Eun Cervantes MD [Active] - (Pauly called Dr. Cervantes's neurology office and left a message with the office nurse, Martha, and explained the situation. I asked Martha to call you to resolve the driving situation.)
Russ Frederick MD [Family Provider] - in less than 1 week
Norma Carlson MD [Active] - 03/26/25 11:20 am (You are tentatively scheduled to see Dr. Norma Carlson at the [facility] office on 03/26/25 at 11:20 AM. The office is working on confirming this appointment and will call you with confirmation.)
Additional Discharge Medication Instructions: -Take Lasix (furosemide) 20 mg once a day as needed for weight gain of 2-3 lbs in a day or 5 lbs in a week. Also take a dose if needed for lower extremity swelling, bloating or hand swelling. Please call
the office if you take a dose of Lasix more than once in a week.
Continue antibiotics cefdinir and doxycycline for 2 more days
Prescriptions:
New
furosemide [Lasix] 20 mg tablet
20 mg PO DAILY PRN (Reason: Weight gain) Qty: 30 6RF
cefdinir 300 mg capsule
300 mg PO Q12H 2 Days Qty: 4 0RF
doxycycline hyclate 100 mg capsule
100 mg PO BID 2 Days Qty: 4 0RF
Continued
duloxetine 30 MG capsule,delayed release(DR/EC)
30 mg PO HS
umeclidinium-vilanterol [Anoro Ellipta] 1 EACH blister with device
1 inh IH R DAILY
atorvastatin 40 MG tablet
40 mg PO QPM Qty: 30 11RF
carvedilol [Coreg] 6.25 mg Tablet
6.25 mg PO BID Qty: 0 0RF
Xarelto 20 mg Tablet
20 mg PO QPM Qty: 0 0RF
Discharge Orders:
Discharge Patient (As Directed); Ordered 03/14/25
Ordered By: Tiera Sifuentes
Care Plan Goals
Care Plan Goals:
Problem: Readiness for enhanced knowledge related to diagnosis and treatment plan
Goal: Understand your diagnosis and treatment plan needs, including medications if applicable.
Instructions: Know your diagnosis, underlying causes and treatment plan options, including medications if applicable. Consult with your health care team to learn about your diagnosis and treatment plan, including medications if applicable.
Discharge Date and Time
Print Language: SWEDISH
--- NOTE | 2025-03-14 14:06 | CM ---
CM following for DC planning needs
Pt. for DC to home today.
Met w/ patient + spouse. Pt. feels prepared for DC today and offers no concerns or needs.
Plan is for home, no needs.
--- NOTE | 2025-03-14 14:22 | PTCARENOTE ---
Pt seen by Rojas Weaver and KEN Childress. Telemetry and IV device removed. Discharge instructions reviewed with pt and her regarding medications and their possible side effects, daily weights adn diuretic use, reporting cares and
concerns and follow up instructions. Very good understanding verbalized.. Pt escorted out via wheelchair and pt discharged to home.
== END 2025-03-14 14:25 | disposition home or self-care (01) | DRG 871 ==
LOC: IVU 03:07
PROVIDERS: Emergency Medicine; Physician Assistant Medical; ADMITTING PHYSICIAN Internal Medicine; ATTENDING PHYSICIAN Internal Medicine; CONSULT PHYSICIAN Internal Medicine Critical Care Medicine; EMERGENCY PHYSICIAN Emergency Medicine; FAMILY PHYSICIAN Internal Medicine Geriatric Medicine; OTHER PHYSICIAN Internal Medicine Cardiovascular Disease
DX: A41.9 Sepsis, unspecified organism (principal); J18.9 Pneumonia, unspecified organism; I47.19 Other supraventricular tachycardia; I48.3 Typical atrial flutter; I25.10 Atherosclerotic heart disease of native coronary artery without angina pectoris; I48.0 Paroxysmal atrial fibrillation; Z79.01 Long term (current) use of anticoagulants; Z11.52 Encounter for screening for COVID-19; Z79.02 Long term (current) use of antithrombotics/antiplatelets
CPT/HCPCS: 71260; 80048; 80053; 82248; 83735; 83880; 84484; 85025; 85027; 87070; 87205; 87449; 87502; 87811; 87899; 93005; 93306; 94640; 97163; J1160; Q9967

== ENCOUNTER → 2025-03-21 09:07 | Outpatient (REF) | payer MEDICARE, BC, SELFPAY ==
[2025-03-21 10:53] LABS: ALT (SGPT) 22 U/L (0-35); AST (SGOT) 19 U/L (14-36); Albumin 3.9 g/dl (3.5-5.0); Alkaline Phosphatase 153 U/L (38-126); Blood Urea Nitrogen 18 mg/dl (7-17); Calcium 9.9 mg/dl (8.4-10.2); Carbon Dioxide 31 mmol/L (22-30); Chloride 103 mmol/L (98-107); Glucose 109 mg/dl (70-99); Potassium 5.3 mmol/L (3.5-5.1); Sodium 140 mmol/L (135-145); Total Bilirubin 0.8 mg/dl (0.2-1.3); Total Protein 7.5 g/dl (6.3-8.2); eGFR > 60.00
== END ==
LOC: REG 09:07
PROVIDERS: ATTENDING PHYSICIAN Internal Medicine Geriatric Medicine; OTHER PHYSICIAN Internal Medicine Cardiovascular Disease
DX: R79.9 Abnormal finding of blood chemistry, unspecified (principal)
CPT/HCPCS: 36415; 80053

== ENCOUNTER → 2025-04-04 14:54 | Outpatient (REF) | payer MEDICARE, BC, SELFPAY ==
[2025-04-04 16:21] LABS: % Basophils 1.7 % (0-2); % Eosinophils 7.1 % (0-6); % Immature Granulocytes 0.2 % (0-0.5); % Lymphocytes 31.5 % (20.5-51.1); % Monocytes 13.5 % (1.7-9.3); Absolute Basophils 0.1 10^3/uL (0-0.2); Absolute Eosinophils 0.3 10^3/uL (0-0.7); Absolute Lymphocytes 1.5 10^3/uL (1.2-3.4); Absolute Monocytes 0.6 10^3/uL (0.1-0.6); Absolute Neutrophils 2.2 10^3/uL (1.4-6.5); Hemoglobin 11.5 g/dL (12.0-16.0); Mean Corp Hgb Conc. 31.9 g/dL (33.0-37.0); Mean Corpuscular Hgb 28.1 pg (27.0-31.0); Mean Platelet Volume 11.6 fL (7.4-10.4); Nucleated Red Blood Cells % 0 %; Platelet Count 222 10^3/uL (130-400); Red Blood Cell Count 4.09 10^6/uL (4.20-5.40); Red Cell Dist. Width 14.7 % (11.5-14.5); White Blood Cell Count 4.7 10^3/uL (4.8-10.8)
[2025-04-04 16:32] LABS: INR 1.28; PT 16.5 Sec (11.4-14.6)
[2025-04-04 16:44] LABS: Blood Urea Nitrogen 18 mg/dl (7-17); Calcium 9.4 mg/dl (8.4-10.2); Carbon Dioxide 30 mmol/L (22-30); Chloride 107 mmol/L (98-107); Glucose 103 mg/dl (70-99); Potassium 4.4 mmol/L (3.5-5.1); Sodium 142 mmol/L (135-145); eGFR > 60.00
== END ==
LOC: REG 14:54
PROVIDERS: ATTENDING PHYSICIAN Nurse Practitioner Acute Care; FAMILY PHYSICIAN Internal Medicine Geriatric Medicine
DX: I35.0 Nonrheumatic aortic (valve) stenosis (principal)
CPT/HCPCS: 36415; 80048; 85025; 85610

== ENCOUNTER → 2025-05-21 07:17 | Outpatient (REF) | payer MEDICARE, BC, SELFPAY | LOC: RCS 07:17 | PROVIDERS: ATTENDING PHYSICIAN Nurse Practitioner Acute Care; FAMILY PHYSICIAN Internal Medicine Geriatric Medicine | DX: I35.0 Nonrheumatic aortic (valve) stenosis (principal) | CPT/HCPCS: 93308; 93321; 93325 ==

== ENCOUNTER → 2025-06-14 08:13 | Outpatient (REF) | payer MEDICARE, BC, SELFPAY | LOC: RCS 08:13 | PROVIDERS: ATTENDING PHYSICIAN Nurse Practitioner Acute Care; FAMILY PHYSICIAN Internal Medicine Geriatric Medicine | DX: Z95.2 Presence of prosthetic heart valve (principal) | CPT/HCPCS: 93306 ==